=== PATIENT | female | born 1980 | race Caucasian/White ===

== ENCOUNTER 2017-04-02 13:40 | Emergency (ER) | payer OTHER ==
[~2017-04-02] VITALS: Ht 167.6 cm; Wt 99.8 kg
[~2017-04-02 13:40] MED LIST: ACYCLOVIR 400400 MG PO; BACTRIM DS TAB1 EACH PO; MEDROLDOSEPACK PO; PREDNISONE 10 M10 M1 PO; PREDNISONE 10 M10 MG PO; TRIAMCINOLONE A80 G2 TOP; XOLEGEL45 GM TP
[2017-04-02] MEDS ORDERED: NOHOMEMEDICATIONS (14:11)
[2017-04-02] MEDS ORDERED: TRIAMCINOLONE A80 G2 TOP (14:35)
[2017-04-02] MEDS ORDERED: PREDNISONE 10 M10 M1 PO (14:35)
[2017-04-02 14:54] VITALS: BP 154/107
== END 2017-04-02 14:56 | disposition home or self-care (01) ==
LOC: M.ERS 13:40
DX: R21 Rash and other nonspecific skin eruption (principal)

== ENCOUNTER 2017-09-09 12:33 | Emergency (ER) | payer OTHER ==
[~2017-09-09] VITALS: Ht 167.6 cm; Wt 113.4 kg
[~2017-09-09 12:33] MED LIST changes: +NOHOMEMEDICATIONS
[2017-09-09] MEDS ORDERED: PENICILLIN VK500 MG PO (13:19)
[2017-09-09] MEDS ORDERED: NORCO 5-325 TA1 EAC1 PO (13:19)
[2017-09-09 13:51] VITALS: BP 128/90
== END 2017-09-09 13:52 | disposition home or self-care (01) ==
LOC: M.ERS 12:33
DX: K02.9 Dental caries, unspecified (principal)

== ENCOUNTER 2018-02-04 11:37 | Emergency (ER) | payer OTHER ==
[~2018-02-04] VITALS: Ht 167.6 cm; Wt 117.9 kg
[~2018-02-04 11:37] MED LIST changes: +NORCO 5-325 TA1 EAC1 PO; +PENICILLIN VK500 MG PO
[2018-02-04] MEDS ORDERED: TRIAMCINOLONE A80 G2 TOP (11:57)
[2018-02-04] MEDS ORDERED: KEFLEX500 M1 PO (11:57)
[2018-02-04] MEDS ORDERED: PREDNISONE 10 M10 MG PO (11:57)
[2018-02-04 12:10] VITALS: BP 143/83
== END 2018-02-04 12:10 | disposition home or self-care (01) ==
LOC: M.ERS 11:37
DX: R21 Rash and other nonspecific skin eruption (principal)

== ENCOUNTER 2018-03-28 10:19 | Emergency (ER) | payer OTHER ==
[~2018-03-28] VITALS: Ht 167.6 cm; Wt 113.4 kg
[~2018-03-28 10:19] MED LIST changes: +KEFLEX500 M1 PO
[2018-03-28] MEDS ORDERED: ACETAMINOPHEN-1 EAC1 PO (10:48)
[2018-03-28] MEDS ORDERED: NAPROSYN500 MG PO (10:48)
[2018-03-28] MEDS ORDERED: PENICILLIN V P500 MG PO (10:48)
[2018-03-28 10:55] VITALS: BP 137/83
== END 2018-03-28 10:55 | disposition home or self-care (01) ==
LOC: M.ERS 10:19
DX: K02.9 Dental caries, unspecified (principal)

== ENCOUNTER 2018-04-02 11:46 | Emergency (ER) | payer OTHER ==
[~2018-04-02] VITALS: Ht 167.6 cm; Wt 117.9 kg
[~2018-04-02 11:46] MED LIST changes: +ACETAMINOPHEN-1 EAC1 PO; +NAPROSYN500 MG PO; +PENICILLIN V P500 MG PO
[2018-04-02] MEDS ORDERED: MEDROLDOSEPACK PO (12:44)
[2018-04-02] MEDS ORDERED: HYDROCORTISONE3011 TOP (12:44)
[2018-04-02 13:12] VITALS: BP 128/83
== END 2018-04-02 13:13 | disposition home or self-care (01) ==
LOC: M.ERS 11:46
DX: L29.9 Pruritus, unspecified (principal); R21 Rash and other nonspecific skin eruption

== ENCOUNTER 2018-04-13 16:16 | Emergency (ER) | payer OTHER ==
[~2018-04-13] VITALS: Ht 167.6 cm; Wt 113.4 kg
[~2018-04-13 16:16] MED LIST changes: +HYDROCORTISONE3011 TOP
[2018-04-13] MEDS ORDERED: PREDNISONE 20 M20 MG PO (16:51)
[2018-04-13 17:13] VITALS: BP 140/100
== END 2018-04-13 17:14 | disposition home or self-care (01) ==
LOC: M.ERS 16:16
DX: R21 Rash and other nonspecific skin eruption (principal)

== ENCOUNTER 2018-04-21 11:41 | Emergency (ER) | payer OTHER ==
[~2018-04-21] VITALS: Ht 170.2 cm; Wt 113.4 kg
[~2018-04-21 11:41] MED LIST changes: +PREDNISONE 20 M20 MG PO
[2018-04-21] MEDS ORDERED: MEDROLDOSEPACK PO (12:10)
[2018-04-21] MEDS ORDERED: PREDNISONE50 MG PO (12:10)
[2018-04-21] MEDS ORDERED: AQUAPHOR85 GM TOP (12:12)
[2018-04-21 12:33] VITALS: BP 119/81
== END 2018-04-21 12:30 | disposition home or self-care (01) ==
LOC: M.ERS 11:41
DX: L30.9 Dermatitis, unspecified (principal)

== ENCOUNTER 2018-04-30 12:52 | Emergency (ER) | payer OTHER ==
[~2018-04-30] VITALS: Ht 167.6 cm; Wt 113.4 kg
[~2018-04-30 12:52] MED LIST changes: +AQUAPHOR85 GM TOP; +PREDNISONE50 MG PO
[2018-04-30] MEDS ORDERED: PREDNISONE 20 M20 M1 PO (13:09)
[2018-04-30 13:16] VITALS: BP 122/82
== END 2018-04-30 13:17 | disposition home or self-care (01) ==
LOC: M.ERS 12:52
DX: L30.9 Dermatitis, unspecified (principal)

== ENCOUNTER 2018-05-16 10:49 | Emergency (ER) | payer OTHER ==
[~2018-05-16] VITALS: Ht 170.2 cm; Wt 113.4 kg
[~2018-05-16 10:49] MED LIST changes: +PREDNISONE 20 M20 M1 PO
[2018-05-16 10:54] VITALS: BP 130/90
[2018-05-16] MEDS ORDERED: PREDNISONE 10 M10 MG PO (11:20)
== END 2018-05-16 11:28 | disposition home or self-care (01) ==
LOC: M.ERS 10:49
DX: R21 Rash and other nonspecific skin eruption (principal)

== ENCOUNTER 2019-03-07 19:23 | Emergency (ER) | payer OTHER ==
[~2019-03-07] VITALS: Ht 167.6 cm; Wt 117.9 kg
[2019-03-07] MEDS ORDERED: CYMBALTA60 MG PO (19:29)
[2019-03-07] MEDS ORDERED: HYDROCODON-ACE1 EAC7 PO (20:15)
[2019-03-07] MEDS ORDERED: PAROEX473 ML PO (20:15)
[2019-03-07] MEDS ORDERED: IBUPROFEN 800800 MG PO (20:15)
[2019-03-07] MEDS ORDERED: PENICILLIN V P500 MG PO (20:15)
[2019-03-07 20:39] VITALS: BP 142/78
== END 2019-03-07 20:40 | disposition home or self-care (01) ==
LOC: M.ERS 19:23
DX: K02.9 Dental caries, unspecified (principal); Z87.891 Personal history of nicotine dependence

== ENCOUNTER 2019-05-02 08:55 | Emergency (ER) | payer OTHER ==
[~2019-05-02] VITALS: Ht 167.6 cm; Wt 131.1 kg
[~2019-05-02 08:55] MED LIST changes: +CYMBALTA60 MG PO; +HYDROCODON-ACE1 EAC7 PO; +IBUPROFEN 800800 MG PO; +PAROEX473 ML PO
[2019-05-02 09:11] LABS: URINE BILIRUBIN NEGATIVE (Negative); URINE BLOOD 3+ (Negative); URINE CLARITY CLEAR; URINE COLOR YELLOW; URINE GLUCOSE-RANDOM NEGATIVE (Negative); URINE KETONES NEGATIVE (Negative); URINE LEUKOCYTES-REFLEX 1+ (Negative); URINE NITRITE-REFLEX NEGATIVE (Negative); URINE PROTEIN 1+ (Negative); URINE SPECIFIC GRAVITY >= 1.030 (1.005-1.030); URINE UROBILINOGEN 0.2 E.U./dl (0.2-1.0)
[2019-05-02 09:21] LABS: HEMATOCRIT 40.5 % (37.0-47.0); HEMOGLOBIN 13.9 gm/dL (12.0-15.0); MCH 27.8 pg (26.0-34.0); MCHC 34.2 g/dL (28.0-37.0); MCV 81.4 fL (80.0-100.0); MPV 9.4 fl. (7.2-11.1); RBC 4.98 mil/uL (4.20-5.00); RDW-CV 17.8 % (10.5-14.5); WBC 9.2 thou/uL (4.0-11.0)
[2019-05-02 09:28] LABS: SQUAMOUS 4-10 Moderate /LPF (0-3)
[2019-05-02 09:29] LABS: BACTERIA-REFLEX 1-9 Few /HPF (None Seen); CASTS None Seen /LPF (None Seen); CRYSTALS None Seen /LPF (None Seen); MUCUS >6 Heavy strn/LPF (None Seen); URINE RBC >20 Many /HPF (0-2); URINE WBC-REFLEX 6-15 Few /HPF (0-5)
[2019-05-02 09:30] LABS: CALCIUM 8.7 mg/dL (8.5-10.1); POTASSIUM 4.3 mmol/L (3.5-5.1)
[2019-05-02 09:42] LABS: ALBUMIN 3.4 g/dL (3.4-5.0); TOTAL BILIRUBIN 0.3 mg/dL (<0.1-1.0); TOTAL PROTEIN 7.5 g/dL (6.4-8.2)
[2019-05-02] MEDS ORDERED: BACTRIM DS TAB1 EACH PO (09:53)
[2019-05-02] MEDS ORDERED: PYRIDIUM200 MG PO (09:53)
[2019-05-02] MEDS ORDERED: IBUPROFEN 800800 M1 PO (09:53)
[2019-05-02] MEDS ORDERED: FLEXERIL PO (09:53)
[2019-05-02 10:16] VITALS: BP 149/95
== END 2019-05-02 10:18 | disposition home or self-care (01) ==
LOC: M.ERS 08:55
PROVIDERS: Emergency Medicine Emergency Medical Services
DX: N39.0 Urinary tract infection, site not specified (principal); Z87.891 Personal history of nicotine dependence

== ENCOUNTER 2019-06-20 09:44 | Emergency (ER) | payer OTHER ==
[~2019-06-20] VITALS: Ht 167.6 cm; Wt 127.0 kg
[~2019-06-20 09:44] MED LIST changes: +FLEXERIL PO; +IBUPROFEN 800800 M1 PO; +PYRIDIUM200 MG PO
[2019-06-20] MEDS ORDERED: TYLENOL WITH CO1 TA1 PO (10:37)
[2019-06-20] MEDS ORDERED: PREDNISONE 10 M10 MG PO (10:37)
[2019-06-20 11:01] VITALS: BP 145/86
== END 2019-06-20 11:02 | disposition home or self-care (01) ==
LOC: M.ERS 09:44
DX: L53.9 Erythematous condition, unspecified (principal); Z87.39 Personal history of other diseases of the musculoskeletal system and connective tissue; Z87.891 Personal history of nicotine dependence

== ENCOUNTER 2019-07-15 13:40 | Emergency (ER) | payer OTHER ==
[~2019-07-15] VITALS: Ht 162.6 cm; Wt 112.0 kg
[~2019-07-15 13:40] MED LIST changes: +TYLENOL WITH CO1 TA1 PO
[2019-07-15] MEDS ORDERED: PREDNISONE 20 M20 MG PO (14:07)
[2019-07-15 14:24] VITALS: BP 138/95
== END 2019-07-15 14:26 | disposition home or self-care (01) ==
LOC: M.ERS 13:40
DX: R21 Rash and other nonspecific skin eruption (principal); Z76.0 Encounter for issue of repeat prescription; Z87.39 Personal history of other diseases of the musculoskeletal system and connective tissue; Z87.891 Personal history of nicotine dependence

== ENCOUNTER 2019-09-09 11:41 | Emergency (ER) | payer OTHER ==
[~2019-09-09] VITALS: Ht 167.6 cm; Wt 127.0 kg
[2019-09-09] MEDS ORDERED: PREDNISONE 20 M20 MG PO (12:14)
[2019-09-09] MEDS ORDERED: CLEOCIN HCL300 MG PO (12:14)
[2019-09-09 12:28] VITALS: BP 120/93
== END 2019-09-09 12:28 | disposition home or self-care (01) ==
LOC: M.ERS 11:41
DX: K12.2 Cellulitis and abscess of mouth (principal); R21 Rash and other nonspecific skin eruption; J02.9 Acute pharyngitis, unspecified; Z79.899 Other long term (current) drug therapy

== ENCOUNTER 2019-09-26 23:51 | Emergency (ER) | payer OTHER ==
[~2019-09-26] VITALS: Ht 167.6 cm; Wt 127.0 kg
[~2019-09-26 23:51] MED LIST changes: +CLEOCIN HCL300 MG PO
[2019-09-26 23:56] VITALS: BP 158/92
[2019-09-26] MEDS ORDERED: RAYOS5 MG PO (23:58)
[2019-09-27] MEDS ORDERED: PENICILLIN VK250 MG PO (00:11)
[2019-09-27] MEDS ORDERED: HYDROCODON-ACE1 EAC8 PO (00:11)
== END 2019-09-27 00:15 | disposition home or self-care (01) ==
LOC: M.ERS 23:51
DX: K08.89 Other specified disorders of teeth and supporting structures (principal); Z79.899 Other long term (current) drug therapy

== ENCOUNTER 2019-10-14 15:49 | Emergency (ER) | payer OTHER ==
[~2019-10-14] VITALS: Ht 167.6 cm; Wt 122.5 kg
[~2019-10-14 15:49] MED LIST changes: +HYDROCODON-ACE1 EAC8 PO; +PENICILLIN VK250 MG PO; +RAYOS5 MG PO
[2019-10-14 17:43] VITALS: BP 154/106
== END 2019-10-14 17:45 | disposition left against medical advice (07) ==
LOC: M.ERS 15:49
DX: Z53.21 Procedure and treatment not carried out due to patient leaving prior to being seen by health care provider (principal)

== ENCOUNTER 2019-10-16 17:39 | Emergency (ER) | payer OTHER ==
[~2019-10-16] VITALS: Ht 157.5 cm; Wt 122.5 kg
[2019-10-16] MEDS ORDERED: PREDNISONE 10 M10 MG PO (17:56)
[2019-10-16] MEDS ORDERED: TYLENOL WITH CO1 TA1 PO (17:56)
[2019-10-16 18:01] VITALS: BP 147/100
== END 2019-10-16 18:01 | disposition home or self-care (01) ==
LOC: M.ERS 17:39
DX: L25.9 Unspecified contact dermatitis, unspecified cause (principal); M32.9 Systemic lupus erythematosus, unspecified; Z87.891 Personal history of nicotine dependence

== ENCOUNTER 2020-01-29 10:44 | Emergency (ER) | payer OTHER | END 2020-01-29 11:49 | disposition home or self-care (01) | LOC: M.ERS 10:44 | DX: Z53.21 Procedure and treatment not carried out due to patient leaving prior to being seen by health care provider (principal) ==

== ENCOUNTER 2020-04-10 13:08 | Emergency (ER) | payer OTHER ==
[~2020-04-10] VITALS: Ht 167.6 cm; Wt 127.0 kg
[2020-04-10] MEDS ORDERED: PREDNISONE 20 M20 MG PO (13:19)
[2020-04-10] MEDS ORDERED: DULOXETINE HCL30 MG PO (13:19)
[2020-04-10] MEDS ORDERED: DOXYCYCLINE 10100 MG PO (13:44)
[2020-04-10] MEDS ORDERED: HYDROCODON-ACE1 EAC7 PO (13:44)
[2020-04-10] MEDS ORDERED: CENTANY30 GM TOP (13:44)
[2020-04-10] MEDS ORDERED: PLAQUENIL200 MG PO (13:48)
[2020-04-10 13:55] VITALS: BP 124/102
== END 2020-04-10 13:55 | disposition home or self-care (01) ==
LOC: M.ERS 13:08
DX: L02.413 Cutaneous abscess of right upper limb (principal); Z79.899 Other long term (current) drug therapy; Z87.891 Personal history of nicotine dependence

== ENCOUNTER 2020-06-27 08:02 | Emergency (ER) | payer OTHER ==
[~2020-06-27] VITALS: Ht 170.2 cm; Wt 133.8 kg
[~2020-06-27 08:02] MED LIST changes: +CENTANY30 GM TOP; +DOXYCYCLINE 10100 MG PO; +DULOXETINE HCL30 MG PO; +PLAQUENIL200 MG PO
[2020-06-27 08:10] VITALS: BP 171/91
[2020-06-27] MEDS ORDERED: PENICILLIN VK500 M1 PO (08:17)
[2020-06-27] MEDS ORDERED: HYDROCODON-ACE1 EAC7 PO (08:17)
== END 2020-06-27 08:25 | disposition home or self-care (01) ==
LOC: M.ERS 08:02
DX: K04.7 Periapical abscess without sinus (principal); K02.9 Dental caries, unspecified; Z87.891 Personal history of nicotine dependence; M32.9 Systemic lupus erythematosus, unspecified

== ENCOUNTER 2020-08-29 21:13 | Emergency (ER) | payer OTHER ==
[~2020-08-29] VITALS: Ht 170.2 cm; Wt 127.0 kg
[~2020-08-29 21:13] MED LIST changes: +PENICILLIN VK500 M1 PO
[2020-08-29] MEDS ORDERED: TRAZODONE HCL5 GM (21:27)
[2020-08-30] MEDS ORDERED: BACTRIM DS TAB1 EACH PO (00:14)
[2020-08-30] MEDS ORDERED: HYDROCODON-ACE1 EAC7 PO (00:14)
[2020-08-30 00:22] VITALS: BP 136/89
== END 2020-08-30 00:22 | disposition home or self-care (01) ==
LOC: M.ERS 21:13
DX: L02.811 Cutaneous abscess of head [any part, except face] (principal); Z87.891 Personal history of nicotine dependence

== ENCOUNTER 2020-11-03 16:10 | Inpatient (IN) | payer OTHER ==
[~2020-11-03] VITALS: Ht 167.6 cm; Wt 107.3 kg
--- NOTE | ~2020-11-03 | EMS ---
[address] [address] EMS Patient Care Report Name: CARISA BRAN Room: [address] IN [facility]#: [id number] Admission: 11/03/20 Attend Phys: Reanna Guerin MD Discharge: Date of : 76 Report #: [id number] THIS REPORT FOR: //name// Report Transmitted: 11/03/2020 19:43 EMS Care Summary [facility] [employer] [facility] Incident [id number] @ 11/03/2020 15:17 Incident Location [address] [address] Patient CARISA BRAN Female, 40 Years 1980 Patient Address [address] [address] Patient History Fibromyalgia,Lupus, Patient Allergies No known allergies, Patient Medications Other, Prednisone, Chief Complaint nausea/weakness Disposition Transported No Lights/[place] [facility] Reason Sick Person Transported To [facility] Narrative Dispatched to a residence for a 40y/o female with flu like symptoms. Upon arrival pt. was lying in bed c/o nausea and general weakness. Pt. stated that [address] [address] EMS Patient Care Report Name: CARISA BRAN Room: [address] IN [place]#: [id number] Admission: 11/03/20 Attend Phys: Reanna Guerin MD Discharge: Date of : 76 Report #: [id number] she has had these symptoms and a fever off and on for 3 days. Pt. had no thermometer so actual temp. was unknown. Pt. stated that she has not eaten much, but has continued to drink water and has had normal urination. VS were stable with temp. of 36*c. Pt. walked to the cot with assistance. BG was 337, pt. has no history of diabetes. IV was started, 4mg Zofran administered, and 1000ml bolus given. En route pt. felt what she described as "heartburn". 12 lead EKG showed sinus rhythm. Pt. condition was unchanged and BG was 338 upon arrival at ED. Pt. was transported to [place] for emergency services. Initial Vitals @16:01Glucose: 338, @15:25P: 90,R: 24,BP: 128/93,Pain: 0/10,GCS: 15,Temp: 96.8F,Glucose: 337,SpO2: 94,Revised Trauma: 12, @15:50P: 92,R: 20,BP: 104/74,GCS: 15,Glucose: 345,SpO2: 95,Revised Trauma: 12, Impression Nausea Procedures @15:40Saline Lock 10cc (20 ga) Site: Hand-LeftResponse: UnchangedSucceeded@15:42Normal Saline (.9% NaCl) 600cc () Site: Hand-LeftResponse: UnchangedSucceeded@15:45Ondansetron - 4 Milligrams (mg) - Intravenous (IV)Response: Improved Timeline 15:15,Call Received 15:17,Dispatched 15:19,En Route 15:20,Initial Responder On Scene 15:20,On Scene 15:23,At Patient 15:25,BP: 128/93 M,PULSE: 90,RR: 24 R,SPO2: 94 Ox,ETCO2: ,B,PAIN: 0,GCS: 15, 15:40,Saline Lock 10cc 20 ga Site: Hand-Left,Response: UnchangedSucceeded, 15:41,Depart Scene 15:42,Normal Saline (.9% NaCl) 600cc Site: Hand-Left,Response: UnchangedSucceeded, 15:45,Ondansetron - 4 Milligrams (mg) - Intravenous (IV),Response: Improved 15:50,BP: 104/74 M,PULSE: 92,RR: 20 R,SPO2: 95 Ox,ETCO2: ,B,PAIN: ,GCS: 15, 16:01,BP: / M,PULSE: ,RR: R,SPO2: Ox,ETCO2: ,B,PAIN: ,GCS: , 16:03,At Destination 16:05,Transfer Patient 16:19,Call Closed 16:34,[place] [address] EMS Patient Care Report Name: CARISA BRAN Room: [address] IN [facility]#: [id number] Admission: 11/03/20 Attend Phys: Reanna Guerin MD Discharge: Date of : 76 Report #: [id number] Disclaimer v1.1 Copyright 202 [employer] This EMS Care Summary contains data elements from the applicable legal record (which may be displayed differently). It is designed to provide pertinent information for the following purposes: continuity of care, clinical quality, and state data reporting. The complete legal record is available to ED staff and administrators of the receiving hospital in [employer] Patient Tracker. All data is provided "as is."
[~2020-11-03 16:10] MED LIST changes: +TRAZODONE HCL5 GM
[2020-11-03 17:08] VITALS: BP 149/107
[2020-11-03 17:43] LABS: ABSOLUTE LYMPHOCYTES 0.7 thou/uL (0.8-5.3); ABSOLUTE MONOCYTES 0.2 thou/uL (0.0-1.2); ABSOLUTE NEUTROPHILS 4.9 thou/uL (1.6-8.1); BASOPHILS 0.3 %; HEMATOCRIT 45.5 % (37.0-47.0); HEMOGLOBIN 14.6 gm/dL (12.0-15.0); LYMPHOCYTES 12.2 %; MCH 27.4 pg (26.0-34.0); MCV 85.4 fL (80.0-100.0); MONOCYTES 4.1 %; MPV 10.6 fl. (7.2-11.1); NUCLEATED RBCS 0 /100WBC; PLATELET COUNT* 155 thou/uL (150-400); POLYS 83.4 %; RBC 5.33 mil/uL (4.20-5.00); RDW-CV 17.1 % (10.5-14.5); WBC 5.9 thou/uL (4.0-11.0)
[2020-11-03 17:54] LABS: CALCIUM 7.9 mg/dL (8.5-10.1); CREATININE 1.1 mg/dL (0.6-1.3)
[2020-11-03 17:58] LABS: ALBUMIN 2.8 g/dL (3.4-5.0); TOTAL BILIRUBIN 0.4 mg/dL (<0.1-1.0); TOTAL PROTEIN 7.7 g/dL (6.4-8.2)
[2020-11-03 18:08] LABS: URINE BLOOD 3+ (Negative); URINE CLARITY SL CLOUDY; URINE COLOR YELLOW; URINE GLUCOSE-RANDOM 2+ (Negative); URINE LEUKOCYTES-REFLEX TRACE (Negative); URINE NITRITE-REFLEX NEGATIVE (Negative); URINE PROTEIN 2+ (Negative); URINE SPECIFIC GRAVITY >= 1.030 (1.005-1.030); URINE UROBILINOGEN 0.2 E.U./dl (0.2-1.0)
[2020-11-03 18:12] LABS: URINE KETONES 3+ (Negative)
[2020-11-03 18:14] LABS: ACETEST (KETONE CONFIRMATORY) Large (Negative); ICTOTEST (BILI CONFIRMATORY) Negative (Negative); URINE BILIRUBIN 1+ (Negative)
[2020-11-03 18:23] LABS: BACTERIA-REFLEX 1-9 Few /HPF (None Seen); CASTS None Seen /LPF (None Seen); CRYSTALS None Seen /LPF (None Seen); MUCUS 0-3 Light strn/LPF (None Seen); SQUAMOUS >10 Many /LPF (0-3); URINE RBC >20 Many /HPF (0-2); URINE WBC-REFLEX 0-5 Rare /HPF (0-5)
[2020-11-03 19:39] LABS: INFLUENZA A ANTIGEN Negative (Negative); INFLUENZA B ANTIGEN Negative (Negative)
[2020-11-03 20:17] LABS: BE -23.2 mmol/L (-2 to +3); PCO2 VENOUS 31.5 mmHg (41.0-51.0); PO2 VENOUS 70.4 mmHg (35.0-45.0)
[2020-11-03 23:00] VITALS: BP 160/100
[2020-11-03 23:41] LABS: PCO2 VENOUS 40.8 mmHg (41.0-51.0)
[2020-11-03 23:42] LABS: BE -26.4 mmol/L (-2 to +3); PO2 VENOUS 19.7 mmHg (35.0-45.0)
[2020-11-04] VITALS (86 sets, daily range): BP systolic 96–192; BP diastolic 52–103
[2020-11-04 00:44] LABS: BE -23.1 mmol/L (-2 to +3); PCO2 VENOUS 32.3 mmHg (41.0-51.0); PO2 VENOUS 38.5 mmHg (35.0-45.0)
[2020-11-04 00:56] LABS: ALBUMIN 2.6 g/dL (3.4-5.0); BUN 11 mg/dL (7-18); CALCIUM 7.9 mg/dL (8.5-10.1); CHLORIDE 106 mmol/L (98-107); CREATININE 1.2 mg/dL (0.6-1.3); GLUCOSE 292 mg/dL (70-99); PHOSPHORUS* 2.3 mg/dL (2.5-4.9); POTASSIUM 3.8 mmol/L (3.5-5.1)
[2020-11-04 00:58] LABS: ANION GAP 30 mmol/L (7-16); SODIUM 145 mmol/L (136-145)
[2020-11-04 01:00] LABS: CO2 9 mmol/L (21-32)
[2020-11-04 01:06] LABS: BE -20.8 mmol/L (-2 to +3); PO2 89.9 mmHg (75.0-100.0)
[2020-11-04 01:09] LABS: PCO2 < 17.0 mmHg (35.0-45.0)
[2020-11-04 03:47] LABS: BE -19.3 mmol/L (-2 to +3); PO2 113.7 mmHg (75.0-100.0)
[2020-11-04 03:49] LABS: PCO2 17.3 mmHg (35.0-45.0); pH 7.191 (7.340-7.450)
[2020-11-04 05:57] LABS: ALBUMIN 2.3 g/dL (3.4-5.0); CALCIUM 7.5 mg/dL (8.5-10.1); CREATININE 1.1 mg/dL (0.6-1.3); MAGNESIUM 2.1 mg/dL (1.8-2.4); PHOSPHORUS* 0.7 mg/dL (2.5-4.9)
[2020-11-04 06:02] LABS: POTASSIUM 2.8 mmol/L (3.5-5.1)
--- NOTE | 2020-11-04 10:19 | NUR ---
Spoke to Karol over the phone ([phone]) to introduced role of CM. Patient admitted for DKA and COVID 19. Patient is currently on a vent (FiO2 55% and Peep 8). Patient currently on abx, fent, propofol and steroids. Patient to recieve 1st dose of remdesevir today (4 total doses). Patient currently lives in a mobile home with her . 1 step to enter home. Patient was independent with ADLs. No hx of DME, BHS, dialysis, infusion therapy, HH, SNF/Rehab. No DPOA. PCP is Dr. Kanchan Ho. Patient is currently not working and is uninsured. [facility] rep to screen patient. Updated on plan of care. Provided ICU phone number and room number. asking for a call from nursing and or the doctor. Nursing notified. CM to continue to follow for safe dc planning
--- NOTE | 2020-11-04 11:04 | EKG ---
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 : 1980 Requested By: Kianna Monroy Order Number: [id number] MD: Albaro Maddox Measurements Intervals [place] Rate: 87 P: 41 SC: 146 QRS: -30 QRSD: 113 T: 4 QT: 417 QTc: 502 Interpretive Statements Sinus rhythm Probable left atrial enlargement Abnormal R-wave progression, late transition Left ventricular hypertrophy Nonspecific T abnormalities, anterior leads Borderline prolonged QT interval No previous ECG available for comparison Electronically Signed On 11-04-2020 11:04:27 CDT by Albaro Maddox [email or web address] <ELECTRONICALLY SIGNED> By: Albaro Maddox MD, [facility] 11/04/20 1104 1748 1748 Albaro Maddox MD, [facility] /EPI
[2020-11-04 11:57] LABS: BE -11.3 mmol/L (-2 to +3); PCO2 25.1 mmHg (35.0-45.0); PO2 72.7 mmHg (75.0-100.0); pH 7.327 (7.340-7.450)
[2020-11-04 12:53] LABS: PROTIME 10.9 Seconds (9.20-11.50)
[2020-11-04 13:10] LABS: APTT 26.7 Seconds (25.0-31.3)
[2020-11-04 13:38] LABS: CALCIUM 7.5 mg/dL (8.5-10.1); CREATININE 1.2 mg/dL (0.6-1.3); POTASSIUM 3.5 mmol/L (3.5-5.1)
--- NOTE | 2020-11-04 16:33 | 2DMMODE ---
[place] [address] 2 D/M-MODE ECHOCARDIOGRAM Name: BRANCARISA Room: [address] IN [facility]#: [id number] Admission: 11/03/20 Attend Phys: Reanna Guerin, Discharge: Date of : 76 Date of Service: 11/04/20 1633 Report #: [id number] THIS REPORT FOR: cc: Kanchan Ho,Albaro Servin MD [facility] ~ APPROVED REPORT Study performed: 11/04/2020 15:32:23 EXAM: Comprehensive 2D, Doppler, and color-flow Echocardiogram Patient Location: In-Patient Room #: 006 Status: routine BSA: 2.11 HR: 90 bpm BP: 105/78 mmHg Rhythm: NSR Other Information Study Quality: Good Indications Dyspnea 2D Dimensions IVSd: 11.10 (7-11mm) LVOT Diam: 19.72 (18-24mm) LVDd: 43.43 mm PWd: 8.62 (7-11mm) Ascending Ao: 37.70 (22-36mm) LVDs: 26.30 (25-40mm) Aortic Root: 32.32 mm Volumes Left Atrial Volume (Systole) LA ESV Index: 15.50 mL/m2 Aortic Valve AoV Peak Nate.: 1.57 m/s AO Peak Gr.: 9.87 mmHg LVOT Max P.17 mmHg AO Mean Gr.: 5.62 mmHg LVOT Mean P.21 mmHg LVOT Max V: 1.14 m/s AO V2 VTI: 21.01 cm LVOT Mean V: 0.67 m/s DINO (VTI): 2.47 cm2 LVOT V1 VTI: 16.96 [place] [address] 2 D/M-MODE ECHOCARDIOGRAM Name: CARISA BRAN Room: [address] IN [facility].#: [id number] Admission: 11/03/20 Attend Phys: Reanna Guerin, Discharge: Date of : 76 Date of Service: 11/04/20 1633 Report #: [id number] Mitral Valve E/A Ratio: 0.89 MV Decel. Time: 285.93 ms MV E Max Nate.: 0.58 m/s MV PHT: 82.92 ms MVA (PHT): 2.65 cm2 Pulmonary Valve PV Peak Nate.: 1.12 m/s PV Peak Gr.: 5.00 mmHg Left Ventricle The left ventricle is normal size. There is normal LV segmental wall motion. There is normal left ventricular wall thickness. Left ventricular systolic function is normal. The left ventricular ejection fraction is within the normal range. LVEF is 55-60%. This study is not technically sufficient to allow evaluation of the LV diastolic function. Right Ventricle The right ventricle is normal size. The right ventricular systolic function is normal. Atria The left atrium size is normal. The right atrium size is normal. Aortic Valve The aortic valve is normal in structure. No aortic regurgitation is present. There is no aortic valvular stenosis. Mitral Valve The mitral valve is normal in structure. Mild mitral regurgitation. No evidence of mitral valve stenosis. Tricuspid Valve The tricuspid valve is normal in structure. There is trace tricuspid valve regurgitation noted. Pulmonic Valve The pulmonary valve is normal in structure. There is no pulmonic valvular regurgitation. Great Vessels Aortic root is mildly dilated. IVC is normal in size and collapses >50% [place] [address] 2 D/M-MODE ECHOCARDIOGRAM Name: CARISA BRAN Abdirashid Room: [address]#: [id number] Admission: 11/03/20 Attend Phys: Reanna Guerin, Discharge: Date of : 76 Date of Service: 11/04/20 1633 Report #: [id number] Pericardium There is no pericardial effusion. <Conclusion> Left ventricular systolic function is normal. The left ventricular ejection fraction is within the normal range. <ELECTRONICALLY SIGNED> By: Albaro Maddox MD, FACC 11/04/20 1633 [id number] Albaro Maddox MD, [facility] /INF
[2020-11-04 17:38] LABS: BE -10.4 mmol/L (-2 to +3); PCO2 27.5 mmHg (35.0-45.0); PO2 62.1 mmHg (75.0-100.0); pH 7.323 (7.340-7.450)
[2020-11-04 19:26] LABS: CALCIUM 7.5 mg/dL (8.5-10.1); CREATININE 1.3 mg/dL (0.6-1.3); MAGNESIUM 1.7 mg/dL (1.8-2.4)
[2020-11-04 19:30] LABS: POTASSIUM 2.7 mmol/L (3.5-5.1)
[2020-11-05] VITALS (95 sets, daily range): BP systolic 98–143; BP diastolic 62–98
[2020-11-05 04:48] LABS: HEMATOCRIT 34.9 % (37.0-47.0); MCH 27.5 pg (26.0-34.0); MCHC 32.8 g/dL (28.0-37.0); MCV 83.7 fL (80.0-100.0); NUCLEATED RBCS 0 /100WBC; PLATELET COUNT* 128 thou/uL (150-400); RBC 4.17 mil/uL (4.20-5.00); RDW-CV 17.2 % (10.5-14.5); WBC 7.3 thou/uL (4.0-11.0)
[2020-11-05 04:52] LABS: HEMOGLOBIN 11.5 gm/dL (12.0-15.0)
[2020-11-05 05:10] LABS: PHOSPHORUS* 2.5 mg/dL (2.5-4.9)
[2020-11-05 05:14] LABS: ALBUMIN 1.9 g/dL (3.4-5.0); CREATININE 1.2 mg/dL (0.6-1.3); PHOSPHORUS* 2.4 mg/dL (2.5-4.9); POTASSIUM 3.5 mmol/L (3.5-5.1)
[2020-11-05 05:33] LABS: ALBUMIN 1.9 g/dL (3.4-5.0); CREATININE 1.2 mg/dL (0.6-1.3); MAGNESIUM 2.2 mg/dL (1.8-2.4); POTASSIUM 3.6 mmol/L (3.5-5.1); TOTAL BILIRUBIN 0.4 mg/dL (<0.1-1.0); TOTAL PROTEIN 6.3 g/dL (6.4-8.2)
[2020-11-05 05:34] LABS: TROPONIN-I LEVEL 1.17 ng/mL (<0.06)
[2020-11-05 06:46] LABS: ABSOLUTE LYMPHOCYTES 0.2 thou/uL (0.8-5.3); ABSOLUTE MONOCYTES 0.1 thou/uL (0.0-1.2); ABSOLUTE NEUTROPHILS 6.9 thou/uL (1.6-8.1); METAMYELOCYTES 1 %; PLATELET ESTIMATE ADEQUATE
[2020-11-05 07:09] LABS: GLYCOHEMOGLOBIN (HGB A1C) 14.7 % (4.8-5.6)
[2020-11-05 08:40] LABS: PCO2 34.1 mmHg (35.0-45.0); PO2 61.2 mmHg (75.0-100.0)
[2020-11-05 08:59] LABS: pH 7.282 (7.340-7.450)
--- NOTE | 2020-11-05 10:13 | NUR ---
ICU ROUNDS: CXR SHOW COVID IS WORSENING. PT CONT ON VENT AND SEDATION. PT CONT WITH COVID THERAPIES. PT IS OFF PRESSORS.
[2020-11-05 12:40] LABS: BE -9.1 mmol/L (-2 to +3); PCO2 VENOUS 38.2 mmHg (41.0-51.0); PO2 VENOUS 56.2 mmHg (35.0-45.0)
[2020-11-05 12:54] LABS: CALCIUM 6.9 mg/dL (8.5-10.1); CREATININE 0.9 mg/dL (0.6-1.3); MAGNESIUM 2.1 mg/dL (1.8-2.4); PHOSPHORUS* 1.6 mg/dL (2.5-4.9)
[2020-11-05 20:35] LABS: CALCIUM 6.9 mg/dL (8.5-10.1); MAGNESIUM 1.9 mg/dL (1.8-2.4); PHOSPHORUS* 2.8 mg/dL (2.5-4.9); POTASSIUM 3.3 mmol/L (3.5-5.1)
--- NOTE | 2020-11-05 23:23 | CON ---
[address] [address] CONSULTATION Name: CARISA BRAN Room: [address] IN .R.#: [id number] Admission: 11/03/20 Attend Phys: Reanna Guerin MD Discharge: Date of : 76 Report #: [id number] THIS REPORT FOR: cc: Kanchan Ho Ahmad W. DO Pervez, Adeel MD ~ DATE OF CONSULTATION: 11/04/2020 REQUESTING PHYSICIAN: Reanna Guerin MD HISTORY OF PRESENT ILLNESS: The patient is a 40-year-old female, past medical history includes a history of lupus. She has used prednisone for lupus before, unknown if she takes this long-term. I do not see a diagnosis of diabetes on her records prior to this admission. The patient is not known to be vaccinated for COVID-19, is reported to have had dental infections in the past, was recently in the Emergency Room a couple of months ago with abscesses which was secondary to methicillin-sensitive staph. The patient now presented with nausea, vomiting and a high-grade fever of 103 degrees Fahrenheit. She also was severely acidotic and had significant hyperglycemia upon initial presentation. The patient was markedly hypoxemic and tachypneic and also had altered mental status. Therefore, we elected to endotracheally intubate her last night. At this time, the patient is stable on the ventilator; however, she is requiring around 55% FiO2. She does have significant swelling of lower extremities. She remains tachypneic. Blood pressure initially was on the higher side. We have sedated with propofol and fentanyl now and blood pressure has returned to the normal range. She has been given bicarbonate. She also has been fluid resuscitated, received broad spectrum antibiotics and steroids as well. She is currently hemodynamically stable. The patient is unable to provide a further history or review of systems. PAST MEDICAL HISTORY: Lupus use of prednisone, unknown if this is long-term or not; skin abscess, secondary to methicillin-sensitive Staphylococcus recently in August; broken teeth, poor dental hygiene, dental infections; hydradenitis suppurativa, lupus. There is no history of diabetes to my knowledge. SOCIAL HISTORY: Has smoked in the past, unable to quantify. No known history of heavy alcohol use or illegal drug use. CURRENT MEDICATIONS: List in [facility] reviewed. HOME MEDICATIONS: The list in [facility] [employer] [facility] reviewed. She is reported to be on Plaquenil as well as prednisone. Unknown if [place] [address] CONSULTATION Name: CARISA BRAN Room: [address] IN [facility]#: [id number] Admission: 11/03/20 Attend Phys: Reanna Guerin MD Discharge: Date of : 76 Report #: [id number] medications. FAMILY HISTORY: Unknown. IMMUNIZATION HISTORY: There is no known history of immunization to COVID-19. PHYSICAL EXAMINATION: GENERAL: On propofol 50, also fentanyl 50, tachycardic. VITAL SIGNS: Heart rate of around 115, respiratory rate was 32, blood pressure 130/52, saturating 95-96% of 55% FiO2, 5 of PEEP, tidal volume 450, set rate 18, afebrile with a temperature of 36.7. Body mass index 37. HEENT: Normocephalic and atraumatic. Endotracheal tube is in good position. NECK: Does not show raised JVP asymmetry, mass or lymph nodes. CHEST: Symmetrical expansion on inspection and palpation. On auscultation, breath sounds are bilaterally equal. No added sounds. HEART: Regular. There is no murmur. ABDOMEN: Soft and nontender. EXTREMITIES: Lower extremities show 2-3+ edema bilaterally. There is no calf tenderness. SKIN: Dry and intact. NEUROLOGIC: She did move all extremities to pain. No focal deficit identified. Chest x-rays show infiltrates consistent with COVID-19. LABORATORY DATA: Lab work in [facility] showing significant acidosis and hyperglycemia, reviewed. ASSESSMENT AND PLAN: 1. Acute hypoxemic respiratory failure. We will adjust the ventilator. The patient is fluid overloaded at this time; however, if needed, then she will tolerate more fluids while she is on the ventilator for now. Arterial blood gas is obtained. We will increase sedation as the patient is tachypneic. We will follow. 2. COVID-19. I agree with dexamethasone as well as remdesivir as currently ordered. If Actemra becomes available, I will be inclined to give her Actemra as well. Agree with convalescent plasma one unit. If she fails to improve, then I will be inclined to give her a second unit as well. 3. Metabolic acidosis with hyperglycemia. She has a small amount of acetone is her blood noted. She does have significant metabolic acidosis. She is hyperglycemic as well. I am, however, not certain if she in fact has diabetic ketoacidosis. It is possible that there is another cause of this severe acidosis, note that the patient does not have a previous history of diabetes. Regardless, agree with an insulin drip and we will suggest continuing. May benefit from more bicarbonate. Her last potassium was 2.8. I would defer to [address] [address] CONSULTATION Name: CARISA BRAN Room: [address] IN [facility]#: [id number] Admission: 11/03/20 Attend Phys: Reanna Guerin MD Discharge: Date of : 76 Report #: [id number] the Nephrology Service whether bicarb drip is continued. We can push an amp of bicarb as well; however, I would favor bringing the potassium to the normal range before doing this, there are repeat labs pending at this time. 4. Pulmonary infiltrates/history of dental infections. It is for this reason that I would add anaerobic coverage and therefore, I switched her ceftriaxone over to Zosyn and continue with doxycycline for now. We will do more cultures and serologies. 5. Fluid overload/pedal edema, which will check coags including a D-dimer. If as expected, the D-dimer comes back elevated, I will be inclined to work her up for thromboembolism. We will do an echo as well. 6. Deep venous thrombosis prophylaxis for now. We will increase Lovenox to intermediate dose. We will follow when coags are available. 7. Gastrointestinal prophylaxis. On Protonix. 8. Clostridium difficile prophylaxis. We will order Lactinex. 9. Nutrition. We will plan to start tube feeds tomorrow if remains on the ventilator. 10. History of lupus. She is reported to be on prednisone and Plaquenil at home, unknown if the patient in fact was taking these medications. The patient is critically ill at this time. Total time spent providing critical care to this patient today exceeds 50 minutes. <ELECTRONICALLY SIGNED> By: Watson Bowers MD 11/05/20 2323 1149 [id number] Bowers MD /nt
[2020-11-06] VITALS (94 sets, daily range): BP systolic 105–144; BP diastolic 60–98
[2020-11-06 03:07] LABS: ABSOLUTE LYMPHOCYTES 0.2 thou/uL (0.8-5.3); ABSOLUTE MONOCYTES 0.2 thou/uL (0.0-1.2); ABSOLUTE NEUTROPHILS 5.9 thou/uL (1.6-8.1); BASOPHILS 0.5 %; HEMATOCRIT 32.1 % (37.0-47.0); HEMOGLOBIN 10.6 gm/dL (12.0-15.0); LYMPHOCYTES 3.9 %; MCH 27.4 pg (26.0-34.0); MCHC 33.2 g/dL (28.0-37.0); MCV 82.8 fL (80.0-100.0); MONOCYTES 2.7 %; MPV 9.6 fl. (7.2-11.1); NUCLEATED RBCS 0 /100WBC; PLATELET COUNT* 147 thou/uL (150-400); POLYS 92.9 %; RBC 3.88 mil/uL (4.20-5.00); RDW-CV 17.1 % (10.5-14.5); WBC 6.3 thou/uL (4.0-11.0)
[2020-11-06 03:33] LABS: ALBUMIN 1.8 g/dL (3.4-5.0); CALCIUM 6.9 mg/dL (8.5-10.1); CREATININE 0.9 mg/dL (0.6-1.3); MAGNESIUM 2.7 mg/dL (1.8-2.4); POTASSIUM 3.5 mmol/L (3.5-5.1); TOTAL BILIRUBIN 0.3 mg/dL (<0.1-1.0); TOTAL PROTEIN 6.2 g/dL (6.4-8.2)
[2020-11-06 03:39] LABS: PREALBUMIN 11.9 mg/dL (18.0-35.7)
[2020-11-06 03:41] LABS: PHOSPHORUS* 2.6 mg/dL (2.5-4.9)
[2020-11-06 10:51] LABS: CALCIUM 7.1 mg/dL (8.5-10.1); CREATININE 0.8 mg/dL (0.6-1.3); MAGNESIUM 2.6 mg/dL (1.8-2.4); PHOSPHORUS* 2.5 mg/dL (2.5-4.9); POTASSIUM 3.7 mmol/L (3.5-5.1)
--- NOTE | 2020-11-06 14:51 | NUR ---
ICU Rounds: Patient remains on vent (FIO2 60% and peep 10). Continued abx, steroids, remdesevir, propofol, TF and precedex. Patient to remain through the weekend.
[2020-11-06 15:25] LABS: BE -0.5 mmol/L (-2 to +3); PCO2 35.2 mmHg (35.0-45.0); PO2 80.8 mmHg (75.0-100.0); pH 7.438 (7.340-7.450)
[2020-11-06 18:02] LABS: CALCIUM 7.4 mg/dL (8.5-10.1); CREATININE 0.8 mg/dL (0.6-1.3); MAGNESIUM 2.3 mg/dL (1.8-2.4); PHOSPHORUS* 2.7 mg/dL (2.5-4.9); POTASSIUM 4.1 mmol/L (3.5-5.1)
[2020-11-07] VITALS (25 sets, daily range): BP systolic 113–148; BP diastolic 60–98
[2020-11-07 04:18] LABS: CALCIUM 8.1 mg/dL (8.5-10.1); MAGNESIUM 2.4 mg/dL (1.8-2.4); PHOSPHORUS* 2.2 mg/dL (2.5-4.9); POTASSIUM 3.7 mmol/L (3.5-5.1)
[2020-11-07 15:43] LABS: URINE BILIRUBIN NEGATIVE (Negative); URINE BLOOD TRACE (Negative); URINE CLARITY TURBID; URINE COLOR YELLOW; URINE GLUCOSE-RANDOM 3+ (Negative); URINE KETONES 2+ (Negative); URINE LEUKOCYTES NEGATIVE (Negative); URINE NITRITE NEGATIVE (Negative); URINE PROTEIN TRACE (Negative); URINE UROBILINOGEN 0.2 E.U./dl (0.2-1.0)
[2020-11-07 15:56] LABS: MUCUS None Seen strn/LPF (None Seen); SQUAMOUS 0-3 Few /LPF (0-3); YEAST Present (None Seen)
[2020-11-07 15:57] LABS: BACTERIA None Seen /HPF (None Seen); CASTS None Seen /LPF (None Seen); CRYSTALS None Seen /LPF (None Seen); URINE RBC 0-2 Rare /HPF (0-2); URINE WBC None Seen /HPF (0-5)
[2020-11-08] VITALS (54 sets, daily range): BP systolic 96–126; BP diastolic 56–92
[2020-11-08 04:53] LABS: ALBUMIN 2.1 g/dL (3.4-5.0); CALCIUM 8.4 mg/dL (8.5-10.1); CREATININE 0.9 mg/dL (0.6-1.3); HEMATOCRIT 31.4 % (37.0-47.0); HEMOGLOBIN 10.6 gm/dL (12.0-15.0); MCHC 33.9 g/dL (28.0-37.0); MCV 82.5 fL (80.0-100.0); NUCLEATED RBCS 0 /100WBC; PLATELET COUNT* 161 thou/uL (150-400); POTASSIUM 3.5 mmol/L (3.5-5.1); RDW-CV 17.2 % (10.5-14.5); TOTAL BILIRUBIN 0.6 mg/dL (<0.1-1.0); TOTAL PROTEIN 6.2 g/dL (6.4-8.2); WBC 5.7 thou/uL (4.0-11.0)
[2020-11-08 06:51] LABS: ABSOLUTE LYMPHOCYTES 0.4 thou/uL (0.8-5.3); ABSOLUTE MONOCYTES 0.5 thou/uL (0.0-1.2); ABSOLUTE NEUTROPHILS 4.8 thou/uL (1.6-8.1); PLATELET ESTIMATE ADEQUATE
--- NOTE | 2020-11-08 08:07 | NUR ---
NO ACUTE CHANGES ON THIS SHIFT. ASSESSMENT COMPLETED CHARTED. ROUNDING COMPLETED AND ALL NEEDS MET.
[2020-11-09] VITALS (45 sets, daily range): BP systolic 92–128; BP diastolic 48–86
[2020-11-09 05:26] LABS: ABSOLUTE LYMPHOCYTES 0.3 thou/uL (0.8-5.3); ABSOLUTE MONOCYTES 0.2 thou/uL (0.0-1.2); ABSOLUTE NEUTROPHILS 6.2 thou/uL (1.6-8.1); BASOPHILS 0.2 %; EOSINOPHILS 0.4 %; HEMATOCRIT 28.7 % (37.0-47.0); HEMOGLOBIN 9.7 gm/dL (12.0-15.0); LYMPHOCYTES 4.7 %; MCH 28.1 pg (26.0-34.0); MCHC 33.8 g/dL (28.0-37.0); MCV 83.1 fL (80.0-100.0); NUCLEATED RBCS 0 /100WBC; PLATELET COUNT* 162 thou/uL (150-400); POLYS 91.7 %; RBC 3.45 mil/uL (4.20-5.00); RDW-CV 16.8 % (10.5-14.5); WBC 6.8 thou/uL (4.0-11.0)
[2020-11-09 05:40] LABS: ALBUMIN 1.6 g/dL (3.4-5.0); CALCIUM 8.4 mg/dL (8.5-10.1); CREATININE 0.9 mg/dL (0.6-1.3); POTASSIUM 3.9 mmol/L (3.5-5.1); TOTAL BILIRUBIN 0.4 mg/dL (<0.1-1.0); TOTAL PROTEIN 5.7 g/dL (6.4-8.2)
[2020-11-09 05:41] LABS: PREALBUMIN 16.7 mg/dL (18.0-35.7)
[2020-11-09 14:05] LABS: BE 3.9 mmol/L (-2 to +3); PCO2 40.3 mmHg (35.0-45.0)
--- NOTE | 2020-11-09 16:25 | NUR ---
ICU ROUNDS: PT PRESENTS WITH WORSENING LUNGS. CONT ON VENT. ABX AND STEROIDS.
[2020-11-09 19:51] LABS: CALCIUM 8.7 mg/dL (8.5-10.1); CREATININE 0.8 mg/dL (0.6-1.3); POTASSIUM 4.2 mmol/L (3.5-5.1)
[2020-11-10] VITALS (48 sets, daily range): BP systolic 95–177; BP diastolic 55–96
--- NOTE | 2020-11-10 07:56 | CON ---
[address] [address] CONSULTATION Name: CARISA BRAN Room: [address] IN ..#: [id number] Admission: 11/03/20 Attend Phys: Reanna Guerin MD Discharge: Date of : 76 Report #: [id number] THIS REPORT FOR: cc: Kanchan Ho Ahmad W. DO Liston, Michael J. MD [facility] ~ cc: Kanchan Ho DO DATE OF CONSULTATION: 11/05/2020 CARDIOLOGY CONSULTATION INDICATION: Elevated troponin. HISTORY OF PRESENT ILLNESS: The patient is a 40-year-old white female who was admitted to the hospital with acute respiratory distress and failure secondary to COVID-19. The patient is presently intubated on ventilator. She is sedated. From review of the medical records, there is no prior history of cardiac disease. The patient has been hemodynamically stable since admission. No history is available from her at this point in time. The patient apparently presented to the Emergency Room with fever, nausea, vomiting. She reported a history of lupus and the inability to take her steroids for three days prior to admission. PAST MEDICAL HISTORY: 1. Lupus. 2. Prior dental infections with poor dentition. 3. Hidradenitis suppurativa. HOME MEDICATIONS: Prednisone 40 mg daily, Plaquenil 200 mg daily. ALLERGIES: None documented. SOCIAL HISTORY: The patient has a remote history of tobacco use and denied alcohol use. FAMILY HISTORY: Noncontributory. REVIEW OF SYSTEMS: Not obtainable. PHYSICAL EXAMINATION: VITAL SIGNS: Blood pressure 106/64, pulse is 89 and regular. GENERAL: This is a white female who is intubated and unresponsive. HEENT: Head is normocephalic, atraumatic. NECK: Shows no JVD[place] [address] CONSULTATION Name: CARISA BRAN Room: [address] IN [facility]#: [id number] Admission: 11/03/20 Attend Phys: Reanna Guerin MD Discharge: Date of : 76 Report #: [id number] CHEST: Diminished anteriorly. CARDIAC: Reveals a regular rhythm without gallop, murmur or rub. ABDOMEN: Soft. Bowel sounds present. EXTREMITIES: Show trace edema. Peripheral pulses 2+ and easily palpable. SKIN: Dry. IMAGING: A 12-lead EKG shows sinus rhythm with left axis deviation and no acute ST abnormalities. Echocardiogram shows normal LV systolic function and no evidence of valvular heart disease. Labs are reviewed. Renal function is stable. Troponin on arrival was less than 0.06 and subsequently 1.17 and now 1.20. IMPRESSION AND RECOMMENDATIONS: 1. Elevated troponin in the setting of acute illness. Doubt this represents acute coronary syndrome. EKG is stable. The patient was not complaining of chest pain on arrival. At this point in time, continue conservative management and we would consider outpatient stress testing once the patient has recovered. 2. COVID-19 pneumonia. The patient presently is being treated with supportive care in the ICU. 3. Respiratory failure secondary to COVID-19. The patient is intubated and oxygenating adequately. 4. History of lupus. The patient is on steroid therapy for COVID-19, which should cover her steroid needs at this point in time. 5. Diabetes, diagnosed presently. The patient is receiving insulin. <ELECTRONICALLY SIGNED> By: Wm Serrano MD, FACC 11/10/20 0756 1205 [id number] jo Serrano MD, FACC /nt
--- NOTE | 2020-11-10 07:58 | NUR ---
ASSUMED PATIENT CARE AT 1900. ASSESSMENTS COMPLETED CHARTED. CARDIAC MONITORING IN PLACE. HOURLY ROUNDING IN PLACE FOR PATIENT SAFETY. FALL PRECAUTIONS IN PLACE FOR PATIENT SAFETY. BED LOCKED AND IN LOWEST POSITION. PATIENT DOES NOT TOLERATE TURNING TO THE RIGHT SIDE.
[2020-11-10 08:22] LABS: ABSOLUTE EOSINOPHILS 0.1 thou/uL (0.0-0.7); ABSOLUTE LYMPHOCYTES 0.3 thou/uL (0.8-5.3); ABSOLUTE MONOCYTES 0.2 thou/uL (0.0-1.2); ABSOLUTE NEUTROPHILS 6.3 thou/uL (1.6-8.1); BASOPHILS 0.1 %; HEMOGLOBIN 10.3 gm/dL (12.0-15.0); LYMPHOCYTES 4.1 %; MCH 27.9 pg (26.0-34.0); MCHC 33.3 g/dL (28.0-37.0); MCV 83.8 fL (80.0-100.0); MONOCYTES 2.7 %; NUCLEATED RBCS 0 /100WBC; PLATELET COUNT* 168 thou/uL (150-400); POLYS 92.1 %; RDW-CV 16.9 % (10.5-14.5); WBC 6.9 thou/uL (4.0-11.0)
[2020-11-10 08:36] LABS: ALBUMIN 2.4 g/dL (3.4-5.0); CALCIUM 9.3 mg/dL (8.5-10.1); MAGNESIUM 1.8 mg/dL (1.8-2.4); PHOSPHORUS* 4.6 mg/dL (2.5-4.9); TOTAL BILIRUBIN 0.5 mg/dL (<0.1-1.0)
[2020-11-10 08:52] LABS: PREALBUMIN 16.3 mg/dL (18.0-35.7)
[2020-11-10 10:58] LABS: BE 7.1 mmol/L (-2 to +3); PCO2 42.9 mmHg (35.0-45.0)
[2020-11-10 11:01] LABS: PO2 59.8 mmHg (75.0-100.0)
[2020-11-10 13:05] LABS: CALCIUM 9.4 mg/dL (8.5-10.1); CREATININE 0.8 mg/dL (0.6-1.3); MAGNESIUM 1.8 mg/dL (1.8-2.4); POTASSIUM 4.2 mmol/L (3.5-5.1)
--- NOTE | 2020-11-10 17:16 | NUR ---
Case and plan of care reviewed with MD each weekday during patient's length of stay. Continue plan of care per MD orders for current dx. Remians on Vent 100% FiO2 from 80% 11/09/20
[2020-11-11] VITALS (51 sets, daily range): BP systolic 93–151; BP diastolic 60–90
[2020-11-11 05:49] LABS: ABSOLUTE BASOPHILS 0.1 thou/uL (0.0-0.2); ABSOLUTE LYMPHOCYTES 0.3 thou/uL (0.8-5.3); ABSOLUTE MONOCYTES 0.2 thou/uL (0.0-1.2); ABSOLUTE NEUTROPHILS 5.8 thou/uL (1.6-8.1); BASOPHILS 0.8 %; EOSINOPHILS 0.5 %; HEMATOCRIT 30.4 % (37.0-47.0); HEMOGLOBIN 9.7 gm/dL (12.0-15.0); LYMPHOCYTES 4.4 %; MCHC 32.1 g/dL (28.0-37.0); MONOCYTES 3.3 %; NUCLEATED RBCS 0 /100WBC; PLATELET COUNT* 135 thou/uL (150-400); RBC 3.62 mil/uL (4.20-5.00); RDW-CV 16.6 % (10.5-14.5); WBC 6.3 thou/uL (4.0-11.0)
[2020-11-11 06:03] LABS: PHOSPHORUS* 4.4 mg/dL (2.5-4.9)
[2020-11-11 06:04] LABS: ALBUMIN 2.1 g/dL (3.4-5.0); CALCIUM 8.9 mg/dL (8.5-10.1); CREATININE 0.9 mg/dL (0.6-1.3); MAGNESIUM 1.7 mg/dL (1.8-2.4); TOTAL BILIRUBIN 0.4 mg/dL (<0.1-1.0); TOTAL PROTEIN 6.8 g/dL (6.4-8.2)
--- NOTE | 2020-11-11 06:59 | NUR ---
ASSUMED PATIENT CARE AT 1900. ASSESSMENTS COMPLETED CHARTED. CARDIAC MONITORING IN PLACE. HOURLY ROUNDING IN PLACE FOR PATIENT SAFETY. FALL PRECAUTIONS IN PLACE FOR PATIENT SAFETY.
[2020-11-11 07:56] LABS: BE 8.2 mmol/L (-2 to +3); pH 7.447 (7.340-7.450)
[2020-11-11 08:02] LABS: PCO2 50.1 mmHg (35.0-45.0)
--- NOTE | 2020-11-11 08:55 | NUR ---
Case and plan of care reviewed with MD each weekday during patient's length of stay. Continue plan of care per MD orders for current dx. IV gtt pressors,sedation. Blood sugars uncontrolled. Remains on vent 100% FiO2 Will continue to follow for dc planning needs
[2020-11-11 09:47] LABS: URINE BILIRUBIN NEGATIVE (Negative); URINE BLOOD TRACE (Negative); URINE CLARITY CLEAR; URINE COLOR YELLOW; URINE GLUCOSE-RANDOM 2+ (Negative); URINE KETONES NEGATIVE (Negative); URINE LEUKOCYTES-REFLEX 1+ (Negative); URINE NITRITE-REFLEX NEGATIVE (Negative); URINE PROTEIN TRACE (Negative); URINE UROBILINOGEN 0.2 E.U./dl (0.2-1.0)
[2020-11-11 09:54] LABS: BACTERIA-REFLEX >30 Many /HPF (None Seen); CASTS None Seen /LPF (None Seen); CRYSTALS None Seen /LPF (None Seen); MUCUS None Seen strn/LPF (None Seen); SQUAMOUS 0-3 Few /LPF (0-3); URINE RBC 0-2 Rare /HPF (0-2)
[2020-11-12] VITALS (47 sets, daily range): BP systolic 40–138; BP diastolic 26–92
[2020-11-12 06:13] LABS: HEMATOCRIT 29.1 % (37.0-47.0); HEMOGLOBIN 9.4 gm/dL (12.0-15.0); MCH 27.4 pg (26.0-34.0); MCHC 32.4 g/dL (28.0-37.0); MCV 84.4 fL (80.0-100.0); MPV 10.7 fl. (7.2-11.1); NUCLEATED RBCS 0 /100WBC; PLATELET COUNT* 151 thou/uL (150-400); RBC 3.45 mil/uL (4.20-5.00); RDW-CV 16.6 % (10.5-14.5); WBC 6.2 thou/uL (4.0-11.0)
[2020-11-12 06:26] LABS: ALBUMIN 2.3 g/dL (3.4-5.0); CALCIUM 9.1 mg/dL (8.5-10.1); CREATININE 0.9 mg/dL (0.6-1.3); MAGNESIUM 2.4 mg/dL (1.8-2.4); POTASSIUM 3.9 mmol/L (3.5-5.1); TOTAL BILIRUBIN 0.3 mg/dL (<0.1-1.0); TOTAL PROTEIN 6.9 g/dL (6.4-8.2)
[2020-11-12 06:27] LABS: PREALBUMIN 18.5 mg/dL (18.0-35.7)
[2020-11-12 06:49] LABS: PHOSPHORUS* 4.3 mg/dL (2.5-4.9)
[2020-11-12 07:00] LABS: ABSOLUTE LYMPHOCYTES 0.4 thou/uL (0.8-5.3); ABSOLUTE MONOCYTES 0.1 thou/uL (0.0-1.2); ABSOLUTE NEUTROPHILS 5.6 thou/uL (1.6-8.1); ATYPICAL LYMPHS 2 %; METAMYELOCYTES 4 %; PLATELET ESTIMATE ADEQUATE
[2020-11-12 07:54] LABS: BE 6.1 mmol/L (-2 to +3); PO2 79.3 mmHg (75.0-100.0)
[2020-11-12 07:58] LABS: PCO2 51.2 mmHg (35.0-45.0)
--- NOTE | 2020-11-12 16:15 | NUR ---
Case and plan of care reviewed with MD each weekday during patient's length of stay. Continue plan of care per MD orders for current dx. Pt remains on Vent 100 FiO2 with IV Sedation. Will continue to follow for DC planning needs.
--- NOTE | 2020-11-12 19:20 | NUR ---
ASSSUMED CARE AT 0700. CARDIAC MONITORING IN PLACE. HIGH FALL RISK PRECAUTIONS IN PLACE. 1 BM DURING SHIFT. PT CURRENTLY ON FENTANYL, VERSED, PRESIDEX DRIPS. SIGNIFICANT OTHER, AMBR, UPDATED ON PHONE.
[2020-11-13] VITALS (52 sets, daily range): BP systolic 80–140; BP diastolic 48–93
[2020-11-13 06:31] LABS: HEMATOCRIT 31.2 % (37.0-47.0); MCH 27.3 pg (26.0-34.0); MCHC 32.2 g/dL (28.0-37.0); MCV 84.6 fL (80.0-100.0); MPV 10.4 fl. (7.2-11.1); RBC 3.68 mil/uL (4.20-5.00); RDW-CV 16.5 % (10.5-14.5); WBC 8.1 thou/uL (4.0-11.0)
[2020-11-13 06:51] LABS: ALBUMIN 2.7 g/dL (3.4-5.0); MAGNESIUM 2.1 mg/dL (1.8-2.4); POTASSIUM 3.6 mmol/L (3.5-5.1); TOTAL BILIRUBIN 0.3 mg/dL (<0.1-1.0); TOTAL PROTEIN 7.2 g/dL (6.4-8.2)
--- NOTE | 2020-11-13 08:50 | NUR ---
Case and plan of care reviewed with MD each weekday during patient's length of stay. Continue plan of care per MD orders for current dx. Remains on vent 60FiO2 IV Precedex gtt CM will continue to follow pt for dc planning needs.
[2020-11-13 14:37] LABS: BE 0 mmol/L (-2 to +3); PCO2 48.2 mmHg (35.0-45.0); pH 7.356 (7.340-7.450)
[2020-11-13 18:56] LABS: URINE BILIRUBIN NEGATIVE (Negative); URINE BLOOD 1+ (Negative); URINE COLOR YELLOW; URINE GLUCOSE-RANDOM TRACE (Negative); URINE KETONES NEGATIVE (Negative); URINE LEUKOCYTES-REFLEX 1+ (Negative); URINE NITRITE-REFLEX NEGATIVE (Negative); URINE PROTEIN NEGATIVE (Negative); URINE SPECIFIC GRAVITY <= 1.005 (1.005-1.030); URINE UROBILINOGEN 0.2 E.U./dl (0.2-1.0)
[2020-11-13 19:32] LABS: URINE CLARITY HAZY
[2020-11-13 19:33] LABS: SQUAMOUS 0-3 Few /LPF (0-3)
[2020-11-13 19:34] LABS: BACTERIA-REFLEX None Seen /HPF (None Seen); CASTS None Seen /LPF (None Seen); CRYSTALS None Seen /LPF (None Seen); URINE RBC 0-2 Rare /HPF (0-2); URINE WBC-REFLEX None Seen /HPF (0-5); YEAST-REFLEX Present (None Seen)
[2020-11-14] VITALS (88 sets, daily range): BP systolic 69–150; BP diastolic 34–96
[2020-11-14 03:18] LABS: ABSOLUTE BASOPHILS 0.1 thou/uL (0.0-0.2); ABSOLUTE LYMPHOCYTES 0.4 thou/uL (0.8-5.3); ABSOLUTE MONOCYTES 0.3 thou/uL (0.0-1.2); ABSOLUTE NEUTROPHILS 7.6 thou/uL (1.6-8.1); BASOPHILS 0.8 %; EOSINOPHILS 0.3 %; HEMOGLOBIN 9.9 gm/dL (12.0-15.0); LYMPHOCYTES 4.8 %; MCHC 31.9 g/dL (28.0-37.0); MCV 84.9 fL (80.0-100.0); MPV 10.5 fl. (7.2-11.1); NUCLEATED RBCS 0 /100WBC; PLATELET COUNT* 188 thou/uL (150-400); POLYS 91.1 %; RBC 3.65 mil/uL (4.20-5.00); RDW-CV 16.4 % (10.5-14.5); WBC 8.4 thou/uL (4.0-11.0)
[2020-11-14 03:26] LABS: ALBUMIN 2.8 g/dL (3.4-5.0); CALCIUM 9.2 mg/dL (8.5-10.1); CREATININE 0.8 mg/dL (0.6-1.3); MAGNESIUM 1.9 mg/dL (1.8-2.4); POTASSIUM 3.9 mmol/L (3.5-5.1); TOTAL BILIRUBIN 0.3 mg/dL (<0.1-1.0)
[2020-11-14 08:17] LABS: BE 0.3 mmol/L (-2 to +3); PCO2 46.2 mmHg (35.0-45.0); PO2 63.9 mmHg (75.0-100.0); pH 7.369 (7.340-7.450)
--- NOTE | 2020-11-14 19:20 | NUR ---
RESUMED CARE AT 0700. CARDIAC MONITORING IN PLACE. HIGH FALL RISK PRECAUTIONS IN PLACE FOR PATIENT'S SAFETY. NO BM. RESTARTED BP SUPPORT. PT CURRENTLY ON LEVO, VERSED, FENTANYL, AND PRESIDEX DRIPS. PROPOFOL BEING RESTARTED, PT AGITATED. ALL ASSESSMENTS COMPLETED CHARTED.
[2020-11-15] VITALS (99 sets, daily range): BP systolic 85–160; BP diastolic 42–99
[2020-11-15 04:39] LABS: HEMATOCRIT 32.7 % (37.0-47.0); HEMOGLOBIN 10.5 gm/dL (12.0-15.0); MCH 27.1 pg (26.0-34.0); MCHC 32.1 g/dL (28.0-37.0); MCV 84.2 fL (80.0-100.0); MPV 10.3 fl. (7.2-11.1); RBC 3.88 mil/uL (4.20-5.00); RDW-CV 16.7 % (10.5-14.5); WBC 13.3 thou/uL (4.0-11.0)
[2020-11-15 04:49] LABS: ALBUMIN 2.5 g/dL (3.4-5.0); CREATININE 1.1 mg/dL (0.6-1.3); MAGNESIUM 1.9 mg/dL (1.8-2.4); POTASSIUM 4.6 mmol/L (3.5-5.1); TOTAL BILIRUBIN 0.4 mg/dL (<0.1-1.0); TOTAL PROTEIN 7.1 g/dL (6.4-8.2)
[2020-11-15 06:32] LABS: BE 3.9 mmol/L (-2 to +3); PCO2 45.5 mmHg (35.0-45.0); PO2 82.9 mmHg (75.0-100.0); pH 7.424 (7.340-7.450)
[2020-11-16] VITALS (95 sets, daily range): BP systolic 100–142; BP diastolic 58–89
[2020-11-16 04:37] LABS: ABSOLUTE LYMPHOCYTES 0.6 thou/uL (0.8-5.3); ABSOLUTE MONOCYTES 0.3 thou/uL (0.0-1.2); ABSOLUTE NEUTROPHILS 8.5 thou/uL (1.6-8.1); BASOPHILS 0.3 %; HEMATOCRIT 29.9 % (37.0-47.0); HEMOGLOBIN 9.7 gm/dL (12.0-15.0); LYMPHOCYTES 6.5 %; MCH 27.4 pg (26.0-34.0); MCHC 32.3 g/dL (28.0-37.0); MCV 84.7 fL (80.0-100.0); MONOCYTES 2.8 %; NUCLEATED RBCS 0 /100WBC; PLATELET COUNT* 214 thou/uL (150-400); POLYS 90.4 %; RBC 3.53 mil/uL (4.20-5.00); RDW-CV 16.3 % (10.5-14.5); WBC 9.4 thou/uL (4.0-11.0)
[2020-11-16 04:56] LABS: ALBUMIN 2.5 g/dL (3.4-5.0); CALCIUM 9.2 mg/dL (8.5-10.1); CREATININE 0.9 mg/dL (0.6-1.3); PHOSPHORUS* 3.8 mg/dL (2.5-4.9); TOTAL BILIRUBIN 0.3 mg/dL (<0.1-1.0)
[2020-11-16 08:19] LABS: BE 6.4 mmol/L (-2 to +3); PCO2 47.8 mmHg (35.0-45.0); PO2 96.3 mmHg (75.0-100.0); pH 7.438 (7.340-7.450)
--- NOTE | 2020-11-16 16:05 | NUR ---
ICU Rounds: Patient remains on vent (FiO2 45% and peep 10). Continued steroids, insulin, TF, fent, versed, precedex and abx. Possible weaning trials in the future. CM to continue to follow for safe dc
[2020-11-17] VITALS (29 sets, daily range): BP systolic 101–136; BP diastolic 50–91
[2020-11-17 05:20] LABS: HEMATOCRIT 29.6 % (37.0-47.0); HEMOGLOBIN 9.6 gm/dL (12.0-15.0); MCH 27.5 pg (26.0-34.0); MCHC 32.6 g/dL (28.0-37.0); MCV 84.4 fL (80.0-100.0); MPV 10.6 fl. (7.2-11.1); NUCLEATED RBCS 0 /100WBC; PLATELET COUNT* 228 thou/uL (150-400); RBC 3.51 mil/uL (4.20-5.00); RDW-CV 16.1 % (10.5-14.5); WBC 9.7 thou/uL (4.0-11.0)
[2020-11-17 05:36] LABS: ALBUMIN 3.1 g/dL (3.4-5.0); CALCIUM 9.8 mg/dL (8.5-10.1); CREATININE 0.8 mg/dL (0.6-1.3); MAGNESIUM 1.9 mg/dL (1.8-2.4); POTASSIUM 4.5 mmol/L (3.5-5.1); TOTAL BILIRUBIN 0.3 mg/dL (<0.1-1.0); TOTAL PROTEIN 7.3 g/dL (6.4-8.2)
[2020-11-17 05:41] LABS: PREALBUMIN 45.3 mg/dL (18.0-35.7)
[2020-11-17 05:43] LABS: PHOSPHORUS* 4.4 mg/dL (2.5-4.9)
[2020-11-17 06:00] LABS: ABSOLUTE LYMPHOCYTES 0.7 thou/uL (0.8-5.3); ABSOLUTE MONOCYTES 0.2 thou/uL (0.0-1.2); ABSOLUTE NEUTROPHILS 8.8 thou/uL (1.6-8.1); ANISOCYTOSIS 1+; PLATELET ESTIMATE ADEQUATE; POIKILOCYTOSIS 1+
--- NOTE | 2020-11-17 15:59 | NUR ---
Case and plan of care reviewed with MD each weekday during patient's length of stay. Continue plan of care per MD orders for current dx. Remains on Vent, IV sedation. Cm will continue to follow for discharge planning needs.
[2020-11-18] VITALS (24 sets, daily range): BP systolic 96–126; BP diastolic 56–90
[2020-11-18 05:24] LABS: ABSOLUTE LYMPHOCYTES 0.5 thou/uL (0.8-5.3); ABSOLUTE MONOCYTES 0.4 thou/uL (0.0-1.2); ABSOLUTE NEUTROPHILS 7.7 thou/uL (1.6-8.1); BASOPHILS 0.3 %; EOSINOPHILS 0.1 %; HEMATOCRIT 31.2 % (37.0-47.0); HEMOGLOBIN 10.1 gm/dL (12.0-15.0); MCH 27.7 pg (26.0-34.0); MCHC 32.5 g/dL (28.0-37.0); MCV 85.3 fL (80.0-100.0); MONOCYTES 4.1 %; MPV 10.1 fl. (7.2-11.1); NUCLEATED RBCS 0 /100WBC; PLATELET COUNT* 238 thou/uL (150-400); POLYS 89.5 %; RBC 3.66 mil/uL (4.20-5.00); WBC 8.5 thou/uL (4.0-11.0)
[2020-11-18 05:41] LABS: ALBUMIN 3.3 g/dL (3.4-5.0); CALCIUM 9.9 mg/dL (8.5-10.1); CREATININE 0.7 mg/dL (0.6-1.3); MAGNESIUM 2.2 mg/dL (1.8-2.4); POTASSIUM 4.7 mmol/L (3.5-5.1); TOTAL BILIRUBIN 0.3 mg/dL (<0.1-1.0); TOTAL PROTEIN 7.3 g/dL (6.4-8.2)
--- NOTE | 2020-11-18 09:48 | NUR ---
ICU Rounds: Patient remains on vent (FiO2 35% and peep 5). Continued versed, precedex, fent, steroids, and TF. Wean trials failed yesterday. CM will check in with family.
[2020-11-18 15:06] LABS: PCO2 49.5 mmHg (35.0-45.0); PO2 74.4 mmHg (75.0-100.0); pH 7.469 (7.340-7.450)
--- NOTE | 2020-11-18 20:04 | NUR ---
I ASSUMED CARE OF THE PATIENT AT 0700. SHE IS ON BEDREST AND VENTILATED. SETTINGS ARE CHARTED. SEDATION MEDS ARE ALSO CHARTED IN THE EMAR. BED IS IN THE LOW LOCKED POSITION AND CALL LIGHT IS IN REACH. PATIENT NEEDS ARE MET AND HOURLY ROUNDING IS COMPLETED. PAIN IS NOT APPARANT. WEANING TRIAL TOOK PLACE AND PATIENT PASSED. SHE WILL HAVE BIPAP PRN/HS AFTER EXTUBATION, SO SHE WILL NEED A NEGATIVE PRESSURE ROOM. OUTSOLE BEVELER PLANS TO MAKE THE MOVE. BLOOD SUGAR IS MONITORED AND MANAGED. I/O IS CHARTED. TIMOTHY IS IN PLACE D/D. 2 GONZALO TUBE FEEDS ARE GOING AND THERE IS NO RESIDUAL. CAME UP AND GOT CELL PHONE, AUDIO DIRECTOR AND DIRTY CLOTHES. WATER BOLUS' OF 200CC/4 HOURS WAS COMPLETED. KEEP PRECEDEX AFTER EXTUBATION. WILL CONTINUE TO MONITOR.
[2020-11-19] VITALS (43 sets, daily range): BP systolic 86–142; BP diastolic 54–93
[2020-11-19 05:50] LABS: ABSOLUTE LYMPHOCYTES 0.4 thou/uL (0.8-5.3); ABSOLUTE MONOCYTES 0.3 thou/uL (0.0-1.2); ABSOLUTE NEUTROPHILS 8.1 thou/uL (1.6-8.1); BASOPHILS 0.2 %; HEMOGLOBIN 10.3 gm/dL (12.0-15.0); LYMPHOCYTES 4.3 %; MCH 27.4 pg (26.0-34.0); MCHC 32.1 g/dL (28.0-37.0); MCV 85.3 fL (80.0-100.0); MONOCYTES 2.9 %; MPV 10.1 fl. (7.2-11.1); NUCLEATED RBCS 0 /100WBC; PLATELET COUNT* 211 thou/uL (150-400); POLYS 92.6 %; RBC 3.75 mil/uL (4.20-5.00); RDW-CV 16.3 % (10.5-14.5); WBC 8.7 thou/uL (4.0-11.0)
[2020-11-19 06:04] LABS: ALBUMIN 3.6 g/dL (3.4-5.0); CALCIUM 9.6 mg/dL (8.5-10.1); CREATININE 0.8 mg/dL (0.6-1.3); MAGNESIUM 2.2 mg/dL (1.8-2.4); POTASSIUM 4.8 mmol/L (3.5-5.1); TOTAL BILIRUBIN 0.4 mg/dL (<0.1-1.0); TOTAL PROTEIN 7.4 g/dL (6.4-8.2)
--- NOTE | 2020-11-19 13:17 | NUR ---
ICU Rounds: Potential plan to extubate patient today. Patient passed weaning trials yesterday. Therapies will need to be ordered post extubation to help with dc planning. Patient is currently self-pay and EVAN milagros will be submitted, per Med Assist once the patient is able to sign EVAN forms. Med Assist following.
--- NOTE | 2020-11-19 15:37 | NUR ---
CM FOLLOW UP CALL, ATTEMPTED TO CONTACT MARIEL 'S CAREGIVER, WAS NOT SUCCESSFUL, PHONE WAS DISCONNECTED.
[2020-11-20] VITALS (35 sets, daily range): BP systolic 96–129; BP diastolic 59–92
[2020-11-20 08:29] LABS: ABSOLUTE BASOPHILS 0.1 thou/uL (0.0-0.2); ABSOLUTE EOSINOPHILS 0.1 thou/uL (0.0-0.7); ABSOLUTE LYMPHOCYTES 1.4 thou/uL (0.8-5.3); ABSOLUTE MONOCYTES 0.5 thou/uL (0.0-1.2); ABSOLUTE NEUTROPHILS 8.5 thou/uL (1.6-8.1); BASOPHILS 0.5 %; EOSINOPHILS 0.8 %; HEMATOCRIT 36.7 % (37.0-47.0); HEMOGLOBIN 12.1 gm/dL (12.0-15.0); LYMPHOCYTES 13.3 %; MCH 27.5 pg (26.0-34.0); MCHC 32.9 g/dL (28.0-37.0); MCV 83.6 fL (80.0-100.0); MONOCYTES 4.5 %; MPV 9.9 fl. (7.2-11.1); NUCLEATED RBCS 0 /100WBC; POLYS 80.9 %; RBC 4.39 mil/uL (4.20-5.00); RDW-CV 16.7 % (10.5-14.5); WBC 10.5 thou/uL (4.0-11.0)
[2020-11-20 08:34] LABS: PLATELET COUNT* 303 thou/uL (150-400)
[2020-11-20 08:42] LABS: ALBUMIN 3.5 g/dL (3.4-5.0); CALCIUM 9.8 mg/dL (8.5-10.1); CREATININE 0.7 mg/dL (0.6-1.3); MAGNESIUM 2.3 mg/dL (1.8-2.4); POTASSIUM 3.9 mmol/L (3.5-5.1); TOTAL BILIRUBIN 0.6 mg/dL (<0.1-1.0); TOTAL PROTEIN 7.4 g/dL (6.4-8.2)
--- NOTE | 2020-11-20 12:01 | NUR ---
ICU ROUNDS: PT HAS BEEN EXTUBATE AND WILL BE MOVED FRO ICU. PLAN IS TO D/C PRECEDEX.
--- NOTE | 2020-11-20 17:14 | NUR ---
This nurse agress with previous nurse assessment. The patient was transfered to [facility]. The patient is alert. Call light within reach.
--- NOTE | 2020-11-20 23:46 | NUR ---
PATIENT'S HEART RATE CONSISTENTLY IN THE 130'S AND SATS DOWN TO 80'S, PATIENT'S NASAL CANNULA NOT ON WHEN THIS NURSE ENTERED THE ROOM. PATIENT'S NASAL CANNULA REAPPLIED AND LORAZEPAM ADMINISTERED. PATIENT'S SATS INCREASED TO LOWER 90'S BUT HEART RATE REMAINS THE SAME, PHYSICIAN FIELD CARE COORDINATOR PAGED, AWAITING RETURN CALL.
--- NOTE | 2020-11-21 00:21 | NUR ---
PHYSICIAN RETURNED THE PAGE, ORDERS RECEIVED.
[2020-11-21 00:26] VITALS: BP 141/88
[2020-11-21 01:24] LABS: HEMATOCRIT 38.1 % (37.0-47.0); HEMOGLOBIN 12.1 gm/dL (12.0-15.0); MCH 26.9 pg (26.0-34.0); MCHC 31.9 g/dL (28.0-37.0); MCV 84.4 fL (80.0-100.0); MPV 9.4 fl. (7.2-11.1); NUCLEATED RBCS 0 /100WBC; PLATELET COUNT* 353 thou/uL (150-400); RBC 4.51 mil/uL (4.20-5.00); WBC 20.7 thou/uL (4.0-11.0)
[2020-11-21 01:46] LABS: ALBUMIN 3.7 g/dL (3.4-5.0); CALCIUM 9.3 mg/dL (8.5-10.1); CREATININE 0.7 mg/dL (0.6-1.3); POTASSIUM 3.3 mmol/L (3.5-5.1); TOTAL BILIRUBIN 0.9 mg/dL (<0.1-1.0); TOTAL PROTEIN 7.8 g/dL (6.4-8.2)
--- NOTE | 2020-11-21 02:22 | NUR ---
PATIENT REMAINS TACHYCARDIC, RATES IN THE 140, DR GUTIERREZ NOTIFIED, ORDERS RECEIVED.
[2020-11-21 03:03] LABS: ABSOLUTE LYMPHOCYTES 1.4 thou/uL (0.8-5.3); ABSOLUTE MONOCYTES 0.6 thou/uL (0.0-1.2); ABSOLUTE NEUTROPHILS 18.6 thou/uL (1.6-8.1)
[2020-11-21 03:14] LABS: PLATELET ESTIMATE ADEQUATE
[2020-11-21 04:34] VITALS: BP 128/78
--- NOTE | 2020-11-21 05:49 | NUR ---
PATIENT'S HEART RATE REMAINS IN THE 140'S DESPITE BEING STARTED ON CARDIZEM DRIP, PHYSICIAN PAGED, AWAITING RETURN CALL.
--- NOTE | 2020-11-21 07:20 | NUR ---
CHANGE OF SHIFT REPORT GIVEN PATIENT SEEN AT BEDSIDE, IN BED RESTING ASSUMED PATIENT CARE
[2020-11-21 08:00] VITALS: BP 104/74
--- NOTE | 2020-11-21 11:09 | EKG ---
[place] [address] ELECTROCARDIOGRAM REPORT Name: CARISA BRAN Room: [place] [address] ADM IN M.R.#: [id number] Admission: 11/03/20 Attend Phys: Reanna Guerin, Discharge: Date of : 76 Date of Service: 11/20/201911 Report #: [id number] THIS REPORT FOR: //name// [facility] Test Date: 2020-11-20 Test Time: 19:12:34 Pat Name: CARISA BRAN Department: Room: [place] [address] Gender: [employer] In[employer]: 1887 : 1980 Requested By: Dalton Palmer Order Number: [id number] Chiqui MD: Chicho Araiza Measurements Intervals Mccormick Rate: 126 P: 44 LA: 134 QRS: -28 QRSD: 93 T: 48 QT: 306 QTc: 444 Interpretive Statements Sinus tachycardia Abnormal R-wave progression, late transition LVH by voltage Compared to ECG 11/03/2020 17:48:07 Sinus rate has increased T-wave abnormality no longer present Electronically Signed On 11-21-2020 11:08:44 CDT by Chicho Araiza [email or web address] <ELECTRONICALLY SIGNED> By: Chicho Araiza MD, FAC 11/21/20 1108 11 11 Chicho Araiza MD, FAC /EPI
[2020-11-21 16:00] VITALS: BP 107/76
[2020-11-21 21:38] VITALS: BP 121/88
[2020-11-22 00:33] VITALS: BP 142/91
--- NOTE | 2020-11-22 03:51 | NUR ---
ASSUMED PT CARE AT APPROX. 1930. REPORT RECEIVED THAT PT WAS EXTUBATED ON 11/19 AND TRANSFERRED FROM THE ICU TO COVID UNIT ON 11/20. PT VSS. PT IS TRACING SR-ST ON DISPUTE SPECIALIST. HR <110BPM. PT LUNG SOUNDS ARE COURSE AND DIMINISHED. PT HAS A WEAK, NPC. PT IS ON 5L NC AND USES BIPAP AT [facility]. PT IS AN ACCUCHECK Q6H. PT HAS A RIJ TRIPLE LUMEN. PT HAS A AGUIRRE IN PLACE TO DRAIN. URINE IS [place] IN COLOR. PT DENIED C/O DURING THE NOC. HOURLY ROUNDS COMPLETE CHARTED. CALL LIGHT WITHIN REACH. FALL PRECAUTIONS IN PLACE FOR SAFETY. NO ACUTE CHANGES THIS SHIFT. WILL CONT. TO MONITOR.
[2020-11-22 04:18] VITALS: BP 128/91
[2020-11-22 05:58] LABS: ABSOLUTE EOSINOPHILS 0.1 thou/uL (0.0-0.7); ABSOLUTE MONOCYTES 0.5 thou/uL (0.0-1.2); ABSOLUTE NEUTROPHILS 10.4 thou/uL (1.6-8.1); BASOPHILS 0.1 %; EOSINOPHILS 0.6 %; HEMATOCRIT 33.5 % (37.0-47.0); LYMPHOCYTES 8.3 %; MCH 27.7 pg (26.0-34.0); MCHC 32.9 g/dL (28.0-37.0); MCV 84.4 fL (80.0-100.0); MONOCYTES 4.4 %; MPV 9.5 fl. (7.2-11.1); NUCLEATED RBCS 0 /100WBC; POLYS 86.6 %; RBC 3.97 mil/uL (4.20-5.00)
[2020-11-22 06:10] LABS: PLATELET COUNT* 249 thou/uL (150-400)
[2020-11-22 06:17] LABS: CALCIUM 8.9 mg/dL (8.5-10.1); CREATININE 0.6 mg/dL (0.6-1.3); MAGNESIUM 2.1 mg/dL (1.8-2.4); POTASSIUM 3.6 mmol/L (3.5-5.1); TOTAL BILIRUBIN 0.7 mg/dL (<0.1-1.0); TOTAL PROTEIN 7.1 g/dL (6.4-8.2)
--- NOTE | 2020-11-22 07:20 | NUR ---
CHANGE OF SHIFT REPORT GIVEN PATIENT SEEN AT BEDSIDE, IN BED ASLEEP ASSUMED PATIENT CARE
[2020-11-22 08:00] VITALS: BP 146/92
[2020-11-22 12:30] VITALS: BP 117/79
[2020-11-22 18:54] VITALS: BP 117/74
[2020-11-22 21:21] VITALS: BP 108/74
[2020-11-23] VITALS: BP 129/83
[2020-11-23 04:00] VITALS: BP 138/92
--- NOTE | 2020-11-23 06:54 | NUR ---
Patient alert with noted weakness, putnam intact, deniea pain. Right ij triple lumen intact. Patient on 3L. Will continue to care.
[2020-11-23 08:17] VITALS: BP 123/90
[2020-11-23 12:00] VITALS: BP 141/94
--- NOTE | 2020-11-23 16:00 | NUR ---
Per Med Assist, Pt a possible Medicaid expansion. ARU at ct.
[2020-11-23 18:47] VITALS: BP 124/89
--- NOTE | 2020-11-23 19:35 | NUR ---
PT LETHARGIC, ORIENTED TO PERSON, PLACE AND SITUATION WITH SOME CONFUSION. PT WAS TEARFUL AND ANXIOUS THIS AM, IVP LORAZEPAM GIVEN ORDERED. PT REMAINS ON BEDREST Q2 HOUR TURN. VSS, NO C/O PAIN, AGUIRRE IN PLACE, PATENT TO DOWNWARD DRAINAGE.
[2020-11-23 20:00] VITALS: BP 123/82
[2020-11-24 00:09] VITALS: BP 101/66
[2020-11-24 04:00] VITALS: BP 100/60
[2020-11-24 04:31] LABS: ABSOLUTE BASOPHILS 0.1 thou/uL (0.0-0.2); ABSOLUTE EOSINOPHILS 0.2 thou/uL (0.0-0.7); ABSOLUTE LYMPHOCYTES 1.1 thou/uL (0.8-5.3); ABSOLUTE MONOCYTES 0.6 thou/uL (0.0-1.2); ABSOLUTE NEUTROPHILS 8.3 thou/uL (1.6-8.1); BASOPHILS 0.5 %; EOSINOPHILS 2.4 %; HEMATOCRIT 30.5 % (37.0-47.0); HEMOGLOBIN 10.1 gm/dL (12.0-15.0); LYMPHOCYTES 10.3 %; MCH 28.3 pg (26.0-34.0); MCHC 33.2 g/dL (28.0-37.0); MCV 85.2 fL (80.0-100.0); MONOCYTES 5.4 %; MPV 9.5 fl. (7.2-11.1); NUCLEATED RBCS 0 /100WBC; PLATELET COUNT* 206 thou/uL (150-400); POLYS 81.4 %; RBC 3.58 mil/uL (4.20-5.00); WBC 10.2 thou/uL (4.0-11.0)
[2020-11-24 04:58] LABS: ALBUMIN 3.3 g/dL (3.4-5.0); CALCIUM 9.1 mg/dL (8.5-10.1); CREATININE 0.8 mg/dL (0.6-1.3); MAGNESIUM 2.1 mg/dL (1.8-2.4); POTASSIUM 3.7 mmol/L (3.5-5.1); TOTAL BILIRUBIN 0.5 mg/dL (<0.1-1.0); TOTAL PROTEIN 6.8 g/dL (6.4-8.2)
--- NOTE | 2020-11-24 05:20 | NUR ---
Pt. alert and oriented to self and place. Intermittently confused. At one point was weeping, stating she was not comfortable. Pt. repositioned in bed. Pt. denies pain, Afebrile. NSR on tele monitor. Pt. on 3L NC, caorse lung sounds with non productive weak cough. Alexis in place, urine dark yellow in color. No BM this shift. Rt. IJ in place and is saline locked. No acute changes noted this shift. Fall precautions in place, call light within reach. Will continue to monitor.
[2020-11-24 07:47] VITALS: BP 1220/87
[2020-11-24 12:00] VITALS: BP 135/86
--- NOTE | 2020-11-24 15:55 | NUR ---
Med Assist to screen Pt. Therapies to reassess for dispo. Pt wanting home, can go home if safe, if not will need ARU. Pt does not have insurance.
[2020-11-24 16:00] VITALS: BP 116/78
[2020-11-24 20:00] VITALS: BP 110/76
[2020-11-25 02:07] VITALS: BP 119/87
[2020-11-25 05:23] VITALS: BP 116/77
--- NOTE | 2020-11-25 06:57 | NUR ---
ASSUMED PT CARE AT APPROX 1930. PT IS AWAKE AND ORIENTED X4. PT IS NOT IN DISTRESS, NO DESATURATIONS NOTED ON 2L OF O2/NC. PT IS TRACING SR ON THE COCKTAIL LOUNGE MANAGER. PT IS REPOSITIONED Q2H AND REQUESTED. NO ACUTE CHANGES THIS SHIFT. CALL LIGHT WITHIN REACH. HOURLY ROUNDING DONE FOR PT SAFETY. HIGH FALL PRECAUTIONS IN PLACE
[2020-11-25 08:32] VITALS: BP 116/82
[2020-11-25 12:00] VITALS: BP 95/61
--- NOTE | 2020-11-25 12:26 | NUR ---
PLAN OF CARE: PHYSICIAN INFORMS THAT THE PT IS CLOSE TO BEING MEDICALLY STABLE FOR D/C TO INPT ARU. HOWEVER AT THIS TIME PT IS NOT ACCEPTED TO INPT ARU D/T 'PT NOT HAVING MEDICAID PENDING STATUS. PT'S FAMILY NEEDS TO SUBMIT REQUESTED INFO TO OBTAIN THIS'. PT CURRENTLY ON 2L O2. PT/OT TO SEE PT TODAY. CM WILL REMAIN AVAILABLE TO ASSIST AND FOLLOW NEEDED.
--- NOTE | 2020-11-25 16:00 | NUR ---
ASSUMED PT CARE AT O730. PT IS A&O AND ANXIOUS. PT ASSISTED WITH REPOSTIONING Q2HR TO PROMOTE COMFORT. SAFETY MEASURES IN PLACE. PT C/O BOTTOM HURTING, PT REPOSITIONED AND STILL COMPLAINED OF HER BOTTOM BEING SORE. PT DOESNT LIKE TO LAY ON HER SIDE. BOTTOM CLEANED AND MOISTURE BARRIER APPLIED, WAFFLE MATTRESS PLACED ON BED AND GAVE PT MUCH RELIEF. ASSESSMENT COMPLETED. ALL MEDICATIONS ADMINISTERED ORDERED. PT VISITING WITH AT THIS TIME. PT WAS ON 2L PER NC THIS AM AND NOW ON RA AND MAINTAINING SATS MID 90'S.
[2020-11-25 19:19] VITALS: BP 112/80
[2020-11-25 20:00] VITALS: BP 107/74
[2020-11-26 00:43] VITALS: BP 120/87
[2020-11-26 04:24] LABS: ABSOLUTE EOSINOPHILS 0.4 thou/uL (0.0-0.7); ABSOLUTE LYMPHOCYTES 0.8 thou/uL (0.8-5.3); ABSOLUTE MONOCYTES 0.5 thou/uL (0.0-1.2); ABSOLUTE NEUTROPHILS 6.8 thou/uL (1.6-8.1); BASOPHILS 0.4 %; EOSINOPHILS 4.4 %; HEMATOCRIT 31.7 % (37.0-47.0); HEMOGLOBIN 10.4 gm/dL (12.0-15.0); LYMPHOCYTES 9.2 %; MCH 28.7 pg (26.0-34.0); MCHC 32.9 g/dL (28.0-37.0); MCV 87.2 fL (80.0-100.0); MONOCYTES 6.3 %; MPV 9.2 fl. (7.2-11.1); NUCLEATED RBCS 0 /100WBC; PLATELET COUNT* 180 thou/uL (150-400); POLYS 79.7 %; RBC 3.63 mil/uL (4.20-5.00); RDW-CV 17.3 % (10.5-14.5); WBC 8.6 thou/uL (4.0-11.0)
[2020-11-26 04:31] VITALS: BP 114/78
[2020-11-26 04:41] LABS: CALCIUM 8.9 mg/dL (8.5-10.1); CREATININE 0.7 mg/dL (0.6-1.3); MAGNESIUM 1.9 mg/dL (1.8-2.4); PHOSPHORUS* 4.3 mg/dL (2.5-4.9); TOTAL BILIRUBIN 0.3 mg/dL (<0.1-1.0); TOTAL PROTEIN 6.9 g/dL (6.4-8.2)
--- NOTE | 2020-11-26 05:36 | NUR ---
ASSUMED PT CARE AT APPROX 1930. PT IS AWAKE AND ORIENTED X4. PT IS NOT IN DISTRESS, NO DESATURATIONS NOTED ON 2L OF O2/NC. PT IS TRACING SR ON THE INSPECTOR REPAIRER SANDSTONE. PT C/O OF LOWER BACK PAIN RELIEVED BY PAIN MEDS GIVEN PER MAY. POSITION CHANGES DONE. NO ACUTE CHANGES THIS SHIFT. CALL LIGHT WITHIN REACH. HOURLY ROUNDING DONE FOR PT SAFETY.
[2020-11-26 09:00] VITALS: BP 124/84
[2020-11-26 12:00] VITALS: BP 107/71
[2020-11-26] MEDS ORDERED: VITAMIN D325 MC2 PO (12:40)
[2020-11-26] MEDS ORDERED: DEXAMETHASONE1 MG PO (12:40)
[2020-11-26] MEDS ORDERED: PROTONIX40 M4 PO (12:40)
[2020-11-26] MEDS ORDERED: HUMALOG100 UNIT/1 SUBQ (12:40)
[2020-11-26] MEDS ORDERED: LANTUS100 UNIT/M SUBQ (12:40)
[2020-11-26] MEDS ORDERED: VITAMIN C1000 MG PO (12:40)
--- NOTE | 2020-11-26 13:08 | NUR ---
WOUND NURSE: PATIENT SEEN FOR SKIN ASSESSMENT TO BUTTOCKS. PATIENT WITH MINOR EXCORIATION RELATED TO MOISTURE AND PREVIOUS BOWEL INCONTINENCE. CLEANSED WITH SOAP AND WATER, RINSED, THEN PATTED DRY. APPLIED Z-GUARD MOISTURE BARRIER CREAM. RECOMMEND APPLICATION Q SHIFT NURSING INTERVENTION. PATIENT ENCOURAGED TO REPOSITION EVERY 2 HOURS AND SHE IS ABLE TO PERFORM THIS.
[2020-11-26 16:16] VITALS: BP 128/79
--- NOTE | 2020-11-26 16:53 | NUR ---
PLAN FOR PT TO D/C TO INPT ARU HERE TODAY. CM WILL REMAIN AVAILABLE TO ASSIST AND FOLLOW NEEDED.
== END 2020-11-26 18:51 | DRG 870 ==
LOC: M.ERS 16:10 → M.TBA-ER 19:21 → M.ICU 11-04 02:12 → M.ORTHSURG 11-20 16:51 → M.2W 11-24 19:01
PROVIDERS: Emergency Medicine Emergency Medical Services; Internal Medicine; Internal Medicine Critical Care Medicine; Internal Medicine Nephrology; Nurse Practitioner Family; Pediatrics; Personal Emergency Response Attendant; ADMIT Internal Medicine; ATTEND Internal Medicine
DX: A41.89 Other specified sepsis (principal); E11.10 Type 2 diabetes mellitus with ketoacidosis without coma; J12.82 Pneumonia due to coronavirus disease 2019; U07.1 COVID-19; J80 Acute respiratory distress syndrome; I21.A1 Myocardial infarction type 2; J15.211 Pneumonia due to Methicillin susceptible Staphylococcus aureus; J15.1 Pneumonia due to Pseudomonas; E43 Unspecified severe protein-calorie malnutrition; E87.2 Acidosis; E87.0 Hyperosmolality and hypernatremia; N76.0 Acute vaginitis; E87.6 Hypokalemia; E83.39 Other disorders of phosphorus metabolism; I51.9 Heart disease, unspecified; B37.9 Candidiasis, unspecified; K04.7 Periapical abscess without sinus; J38.3 Other diseases of vocal cords; Z87.891 Personal history of nicotine dependence; Z79.899 Other long term (current) drug therapy

== ENCOUNTER 2020-11-26 16:15 | Inpatient (IN) | payer OTHER ==
[~2020-11-26] VITALS: Ht 167.6 cm; Wt 104.3 kg
[~2020-11-26 16:15] MED LIST changes: +DEXAMETHASONE1 MG PO; +HUMALOG100 UNIT/1 SUBQ; +LANTUS100 UNIT/M SUBQ; +PROTONIX40 M4 PO; +VITAMIN C1000 MG PO; +VITAMIN D325 MC2 PO
[2020-11-26 19:30] VITALS: BP 137/93
[2020-11-27 07:58] VITALS: BP 129/74
[2020-11-27 08:30] LABS: HEMATOCRIT 33.5 % (37.0-47.0); HEMOGLOBIN 11.1 gm/dL (12.0-15.0); MCH 28.8 pg (26.0-34.0); MCHC 33.1 g/dL (28.0-37.0); MCV 87.1 fL (80.0-100.0); MPV 9.2 fl. (7.2-11.1); RBC 3.85 mil/uL (4.20-5.00); RDW-CV 17.7 % (10.5-14.5); WBC 8.4 thou/uL (4.0-11.0)
[2020-11-27 08:36] LABS: CALCIUM 9.1 mg/dL (8.5-10.1); CREATININE 0.9 mg/dL (0.6-1.3); POTASSIUM 4.1 mmol/L (3.5-5.1)
[2020-11-27 20:09] VITALS: BP 127/84
[2020-11-28 07:50] VITALS: BP 128/87
[2020-11-28 20:04] VITALS: BP 123/82
[2020-11-29 07:30] VITALS: BP 127/87
[2020-11-29 20:00] VITALS: BP 133/96
[2020-11-30 07:46] VITALS: BP 155/104
[2020-11-30 15:00] VITALS: BP 114/84
[2020-11-30 19:40] VITALS: BP 131/79
[2020-12-01 07:32] VITALS: BP 129/83
[2020-12-01 13:27] LABS: URINE BILIRUBIN NEGATIVE (Negative); URINE BLOOD NEGATIVE (Negative); URINE CLARITY CLEAR; URINE COLOR YELLOW; URINE GLUCOSE-RANDOM TRACE (Negative); URINE KETONES TRACE (Negative); URINE LEUKOCYTES-REFLEX NEGATIVE (Negative); URINE NITRITE-REFLEX NEGATIVE (Negative); URINE PROTEIN NEGATIVE (Negative); URINE SPECIFIC GRAVITY >= 1.030 (1.005-1.030); URINE UROBILINOGEN 0.2 E.U./dl (0.2-1.0)
[2020-12-01 19:00] VITALS: BP 129/82
[2020-12-01 23:45] VITALS: BP 136/90
[2020-12-02 05:59] LABS: HEMOGLOBIN 9.8 gm/dL (12.0-15.0); MCHC 33.8 g/dL (28.0-37.0); MCV 85.7 fL (80.0-100.0); MPV 8.4 fl. (7.2-11.1); RBC 3.38 mil/uL (4.20-5.00); RDW-CV 17.6 % (10.5-14.5); WBC 4.7 thou/uL (4.0-11.0)
[2020-12-02 06:14] LABS: CALCIUM 8.3 mg/dL (8.5-10.1); CREATININE 0.7 mg/dL (0.6-1.3); POTASSIUM 3.4 mmol/L (3.5-5.1)
[2020-12-02 07:41] VITALS: BP 126/81
[2020-12-02 19:30] VITALS: BP 121/84
[2020-12-03 07:50] VITALS: BP 141/92
[2020-12-03 19:45] VITALS: BP 139/81
[2020-12-04 07:30] VITALS: BP 123/88
[2020-12-04 20:00] VITALS: BP 123/88
[2020-12-05 07:39] VITALS: BP 119/90
[2020-12-05 19:00] VITALS: BP 136/97
[2020-12-06 07:45] VITALS: BP 149/92
[2020-12-06 20:00] VITALS: BP 131/91
[2020-12-07 07:26] VITALS: BP 134/89
[2020-12-07 19:00] VITALS: BP 133/96
[2020-12-08 08:00] VITALS: BP 126/95
[2020-12-08 19:00] VITALS: BP 128/97
[2020-12-09 05:42] LABS: HEMATOCRIT 30.6 % (37.0-47.0); HEMOGLOBIN 10.3 gm/dL (12.0-15.0); MCH 29.4 pg (26.0-34.0); MCHC 33.5 g/dL (28.0-37.0); MCV 87.6 fL (80.0-100.0); MPV 8.2 fl. (7.2-11.1); RBC 3.5 mil/uL (4.20-5.00); WBC 4.1 thou/uL (4.0-11.0)
[2020-12-09 06:07] LABS: CALCIUM 8.4 mg/dL (8.5-10.1); CREATININE 0.7 mg/dL (0.6-1.3); POTASSIUM 3.5 mmol/L (3.5-5.1)
[2020-12-09 08:00] VITALS: BP 139/81
[2020-12-09] MEDS ORDERED: XANAX 0.25 MG0.25 MG PO (09:22)
[2020-12-09 19:00] VITALS: BP 119/77
[2020-12-10 07:51] VITALS: BP 136/91
[2020-12-10 20:11] VITALS: BP 135/97
[2020-12-11 07:46] VITALS: BP 127/76
[2020-12-11 20:30] VITALS: BP 123/81
[2020-12-12 08:00] VITALS: BP 132/80
[2020-12-12 19:20] VITALS: BP 139/46
[2020-12-13 08:04] VITALS: BP 124/77
[2020-12-13 20:00] VITALS: BP 120/78
[2020-12-14 07:45] VITALS: BP 107/71
[2020-12-14 08:30] VITALS: BP 127/63
[2020-12-14 13:47] LABS: HEMATOCRIT 32.5 % (37.0-47.0); MCH 29.4 pg (26.0-34.0); MCHC 33.7 g/dL (28.0-37.0); MCV 87.3 fL (80.0-100.0); RBC 3.73 mil/uL (4.20-5.00); RDW-CV 18.5 % (10.5-14.5)
[2020-12-14 14:02] LABS: CALCIUM 9.5 mg/dL (8.5-10.1); CREATININE 0.8 mg/dL (0.6-1.3); POTASSIUM 3.7 mmol/L (3.5-5.1); TOTAL BILIRUBIN 0.3 mg/dL (<0.1-1.0); TOTAL PROTEIN 6.6 g/dL (6.4-8.2)
[2020-12-14 19:00] VITALS: BP 107/71
[2020-12-15 08:56] VITALS: BP 107/74
[2020-12-15 19:00] VITALS: BP 134/92
[2020-12-16 05:20] LABS: CALCIUM 8.6 mg/dL (8.5-10.1); CREATININE 0.8 mg/dL (0.6-1.3); POTASSIUM 3.3 mmol/L (3.5-5.1)
[2020-12-16 05:25] LABS: HEMATOCRIT 31.1 % (37.0-47.0); HEMOGLOBIN 10.2 gm/dL (12.0-15.0); MCHC 32.9 g/dL (28.0-37.0); MCV 88.1 fL (80.0-100.0); MPV 8.5 fl. (7.2-11.1); RBC 3.52 mil/uL (4.20-5.00); RDW-CV 18.2 % (10.5-14.5); WBC 3.8 thou/uL (4.0-11.0)
[2020-12-16 07:47] VITALS: BP 117/85
[2020-12-16 19:40] VITALS: BP 141/99
[2020-12-17 12:29] VITALS: BP 141/99
[2020-12-17] MEDS ORDERED: LANTUS SUBQ (14:20)
[2020-12-17] MEDS ORDERED: HUMALOG100 UNIT/1 SUBQ (14:29)
[2020-12-17] MEDS ORDERED: GABAPENTIN 100100 MG PO (14:30)
== END 2020-12-17 17:06 | disposition home or self-care (01) | DRG 947 ==
LOC: M.REH 16:15
PROVIDERS: ADMIT Physical Medicine & Rehabilitation; ATTEND Physical Medicine & Rehabilitation
DX: R53.81 Other malaise (principal); U07.1 COVID-19; J12.82 Pneumonia due to coronavirus disease 2019; J80 Acute respiratory distress syndrome; A41.89 Other specified sepsis; E43 Unspecified severe protein-calorie malnutrition; I21.A1 Myocardial infarction type 2; J15.211 Pneumonia due to Methicillin susceptible Staphylococcus aureus; J15.1 Pneumonia due to Pseudomonas; E87.2 Acidosis; I51.9 Heart disease, unspecified; J38.3 Other diseases of vocal cords; E11.65 Type 2 diabetes mellitus with hyperglycemia; R49.0 Dysphonia; Z68.38 Body mass index [BMI] 38.0-38.9, adult